=== PATIENT | female | born 1955 | race Caucasian/White ===

== ENCOUNTER 2023-08-03 08:17 | Outpatient (AMB) | payer OTHER, SELFPAY ==
--- NOTE | 2023-08-03 08:25 | A.OFFVIS_ITS ---
Intake Vital Signs 08/03/23 08:37 Height 5 ft 7 in Weight 158 lb BMI 24.7 BP 110/80 Blood Pressure Location Lt brachial Position Sitting Pulse 75 Pulse Source Pulse Oximeter Pulse Oximetry (%) 99 Oxygen Delivery Method Room Air Intake Visit Reasons: ENP- Lower Leg Pain -LVM Intake Note: NPV for lower leg pain. Also states has numbness in her right arm. Sales Floor Team Leader Required: Yes Sales Floor Team Leader Name: [id number] Allergies Gadolinium-Containing Contrast Medi Adverse Reaction (Severe, Verified 08/03/23 08:29) sored throat and sneezing arugla Allergy (Severe, Uncoded 08/03/23 08:29) rash HPI HPI Comments History of Present Illness Details 68 y/o male patient presents for new in- person visit for left leg pain. Charlotte ID #[id number] Slovak environmental technical officer utilized. Pt reports left leg pain, it started long time ago, can't remember when it started. She has intermittent electric shock pain from knee to toe, and it is more severe in the middle of night. She tried gabapentin 100 mg to 600 mg but it did not help to relieve the pain. Applying pressure can relieve the eclectic shock pain on her leg. Pt has hx of lower back back injury and left sciatica nerve pain, and right knee pain. She was treated with cortisone injection for lower back, and right knee pain. Pt has not tried physical therapy. [facility] Surgical History (Updated 08/03/23 @ 08:34 by Nurys Qiu CMA) H/O endoscopy Family History (Updated 08/03/23 @ 08:36 by Nurys Qiu CMA) Mother Diabetes Colon cancer Social History (Updated 08/03/23 @ 08:37 by Nurys Qiu CMA) Alcohol intake: never Patient Tobacco Use Status: Never used Tobacco Review of Systems Const All systems reviewed & are unremarkable except as noted in HPI and below ENT Reports Normal hearing present Neuro Reports Normal hearing present Physical Exam Vital Signs: Last Vital Signs Pulse 75 08/03/23 08:37 BP 110/80 08/03/23 08:37 Pulse Ox 99 08/03/23 08:37 Oxygen Delivery Method Room Air 08/03/23 08:37 BMI result Body Mass Index 24.7 Const General: cooperative Nutritional Appearance: average body habitus Orientation/consciousness: patient oriented x3 Limitations: language barrier Neck Neck: Yes full ROM and Yes supple Resp Effort & Inspection: normal respiratory effort and able to speak in complete sentences Neuro General: patient oriented x3, gait normal and moves all extremities Cranial nerves: Yes Bilaterally intact EOM present, Yes Nystagmus not present, Yes Normal facial strength present, Yes Midline tongue present, Yes Normal hearing present, Yes Ability to bilaterally rotate head present and Yes Ability to bilaterally elevate shoulders present Cognition (Neuro): normal cognition Gait exam (Neuro): Normal gait present Motor exam (neuro): 5/5 motor strength present throughout, Pronator motor function not present and no tremor noted Deep tendon reflexes (DTR's): Right patellar reflex intensity grade: 3+ and Left patellar reflex intensity grade: 3+ Psych Appearance: grossly normal Mental Status: mental status grossly normal Affect: normal affect Attitude: cooperative Assessment & Plan Assessment & Plan (1) Left leg pain: Code(s): M79.605 - Pain in left leg Plan Advised patient to try physical therapy. Advised patient to try magnesium 400 mg qHS with baclofen 5 mg qHS. Orders: Orders PT Evaluation and Treatment Today M79.605 - Pain in left leg Medications: New baclofen 5 mg PO BEDTIME 30 days 30 tabs 5RF magnesium oxide 400 mg PO DAILY 30 days 30 tabs 6RF Coding Level of Care Code New Pt Level 3 (19586) Diagnoses Left leg pain M79.605
[2023-08-03 08:37] VITALS: BP 110/80; PULSE 75; O2SAT 99; BMI 24.7
== END 2023-08-03 09:08 | disposition home or self-care (01) ==
LOC: HO.HSMS 08:17
PROVIDERS: Visit Provider Nurse Practitioner Family
DX: M79.605 Pain in left leg (principal)
CPT/HCPCS: 99203

== ENCOUNTER → 2023-08-03 08:17 | Outpatient (BNVA) | payer OTHER, SELFPAY | PROVIDERS: Visit Provider Nurse Practitioner Family ==

== ENCOUNTER 2023-10-07 15:38 | Outpatient (AMB) | payer OTHER, SELFPAY ==
--- NOTE | 2023-10-07 15:45 | A.OFFVIS_ITS ---
Intake Vital Signs 10/07/23 15:47 Weight 155 lb 4 oz BP 110/76 Blood Pressure Location Lt brachial Position Sitting Intake Visit Reasons: 2 mnts f/u for Lower Leg Pain - LVM Woodworking Machinist Required: Yes Woodworking Machinist Name: Vahe [id number] Allergies Gadolinium-Containing Contrast Medi Adverse Reaction (Severe, Verified 10/07/23 15:48) sored throat and sneezing arugla Allergy (Severe, Uncoded 08/03/23 08:29) rash HPI HPI Comments History of Present Illness Details 68 y/o male patient presents for follow up of left leg pain. Vahe ID #[id number] Kiswahili video network engineer utilized. Pt reports left leg pain, it started long time ago, can't remember when it started. She has intermittent electric shock pain from knee to toe, and it is more severe in the middle of night. She tried gabapentin 100 mg to 600 mg but it did not help to relieve the pain. Applying pressure can relieve the eclectic shock pain on her leg. Pt has hx of lower back back injury and left sciatica nerve pain, and right knee pain. She was treated with cortisone injection for lower back, and right knee pain. Physical therapy ordered, but patient wants to do with female provider and waiting for setting schedule with female provider. Patient tried magnesium but it caused GI upset and she stopped it. She also tried baclofen, but it did not help to relieve the leg pain, so she stopped it. [facility] Surgical History H/O endoscopy Family History Mother Diabetes Colon cancer Social History Alcohol intake: never Patient Tobacco Use Status: Never used Tobacco Review of Systems Const All systems reviewed & are unremarkable except as noted in HPI and below ENT Reports Normal hearing present Neuro Reports Normal hearing present Physical Exam Vital Signs: Last Vital Signs BP 110/76 10/07/23 15:47 Const General: cooperative Nutritional Appearance: average body habitus Orientation/consciousness: patient oriented x3 Limitations: language barrier Neck Neck: Yes full ROM and Yes supple Resp Effort & Inspection: normal respiratory effort and able to speak in complete sentences Neuro General: patient oriented x3, gait normal and moves all extremities Cranial nerves: Yes Bilaterally intact EOM present, Yes Nystagmus not present, Yes Normal facial strength present, Yes Midline tongue present, Yes Normal hearing present, Yes Ability to bilaterally rotate head present and Yes Ability to bilaterally elevate shoulders present Cognition (Neuro): normal cognition Gait exam (Neuro): Normal gait present Motor exam (neuro): 5/5 motor strength present throughout, Pronator motor function not present and no tremor noted Deep tendon reflexes (DTR's): Right patellar reflex intensity grade: 3+ and Left patellar reflex intensity grade: 3+ Psych Appearance: grossly normal Mental Status: mental status grossly normal Affect: normal affect Attitude: cooperative Assessment & Plan Assessment & Plan (1) Left leg pain: Code(s): M79.605 - Pain in left leg Plan Advised patient to try physical therapy. Advised patient to undergo EMG of bilateral lower extremities to assess neuropathy. Orders: Orders NE electromyogram (EMG) 10/07/23 M79.605 - Pain in left leg, M79.661 - Pain in right lower leg, M79.662 - Pain in left lower leg Coding Level of Care Code Est Pt Level 3 (38812) Diagnoses Left leg pain M79.605
[2023-10-07 15:47] VITALS: BP 110/76
== END 2023-10-07 16:23 | disposition home or self-care (01) ==
PROVIDERS: Visit Provider Nurse Practitioner Family
DX: M79.605 Pain in left leg (principal)
CPT/HCPCS: 99213

== ENCOUNTER → 2023-10-07 15:38 | Outpatient (BNVA) | payer OTHER, SELFPAY | PROVIDERS: Visit Provider Nurse Practitioner Family ==

== ENCOUNTER 2024-01-13 15:08 | Outpatient (AMB) | payer OTHER, SELFPAY ==
--- NOTE | 2024-01-13 15:10 | A.OFFVIS_ITS ---
Vital Signs 01/13/24 15:33 Height 5 ft 7 in Weight 154 lb 8 oz BMI 24.2 BP 112/70 Blood Pressure Location Lt brachial Position Sitting Pulse 78 Pulse Source Pulse Oximeter Pulse Oximetry (%) 98 Oxygen Delivery Method Room Air Intake Visit Reasons: 3 mo f/u - Confirmed Intake Note: Patient presents 3 months f/u. pt. was not able to take EMG test due to being sick when she had it. She needs asw/asuw tactical air controller, needs address and phone number to where to take the test. Pt. can't sleep feeling to much pain on both legs. Is painful to lift right arm. Wet Trimmer Required: Yes Wet Trimmer Name: [id number] Manal Allergies Gadolinium-Containing Contrast Medi Adverse Reaction (Severe, Verified 01/13/24 15:33) sored throat and sneezing arugla Allergy (Severe, Uncoded 08/03/23 08:29) rash HPI Comments Details: 68 y/o male patient presents for follow up of left leg pain. Manal ID #[id number] Swedish interpreter and translator utilized. Pt reports her left leg pain has not improved. She started having left leg pain, but now she has pain on her bilateral legs. She has intermittent electric shock pain from knee to toe, and it is more severe in the middle of night. And the pain is more severe when she lift her legs up. She tried gabapentin 100 mg to 600 mg but it did not help to relieve the pain. She takes cymbalta 60 mg, and it helps a little to reduce the pain but not last long. She uses cyclobenzaprine as needed due to it makes her very tired. They help to relieve the pain for short period of time. Applying pressure can relieve the eclectic shock pain on her leg. Patient tried magnesium but it caused GI upset and she stopped it. She also tried baclofen, but it did not help to relieve the leg pain, so she stopped it. Pt has hx of lower back back injury and left sciatica nerve pain, and right knee pain. She was treated with cortisone injection for lower back, and right knee pain. However, she states that the pain is not related to sciatica. Pt had physical therapy 6-7 times. Pt missed EMG, need to reschedule, but she did not know where she need to call. [facility] Surgical History H/O endoscopy Family History Mother Diabetes Colon cancer Social History Alcohol intake: never Patient Tobacco Use Status: Never used Tobacco Review of Systems Const All systems reviewed & are unremarkable except as noted in HPI and below ENT Reports Normal hearing present Neuro Reports Normal hearing present Physical Exam Vital Signs: Last Vital Signs Pulse 78 01/13/24 15:33 BP 112/70 01/13/24 15:33 Pulse Ox 98 01/13/24 15:33 Oxygen Delivery Method Room Air 01/13/24 15:33 BMI result Body Mass Index 24.2 Const General: cooperative Nutritional Appearance: average body habitus Orientation/consciousness: patient oriented x3 Limitations: language barrier Neck Neck: Yes full ROM and Yes supple Resp Effort & Inspection: normal respiratory effort and able to speak in complete sentences Neuro General: patient oriented x3, gait normal and moves all extremities Cranial nerves: Yes Bilaterally intact EOM present, Yes Nystagmus not present, Yes Normal facial strength present, Yes Midline tongue present, Yes Normal hearing present, Yes Ability to bilaterally rotate head present and Yes Ability to bilaterally elevate shoulders present Cognition (Neuro): normal cognition Gait exam (Neuro): Normal gait present Motor exam (neuro): 5/5 motor strength present throughout, Pronator motor function not present and no tremor noted Deep tendon reflexes (DTR's): Right patellar reflex intensity grade: 3+ and Left patellar reflex intensity grade: 3+ Psych Appearance: grossly normal Mental Status: mental status grossly normal Affect: normal affect Attitude: cooperative Assessment & Plan Assessment & Plan (1) Left leg pain: Code(s): M79.605 - Pain in left leg Category: Medical Plan Advised patient to undergo EMG of bilateral lower extremities to assess neuropathy. Central scheduling phone number given to patient. Continue to take gabapentin 100 qHS, duloxetine 60 mg daily, and cyclobenzaprine 5 mg as needed. Coding Level of Care Code Est Pt Level 3 (50647) Diagnoses Left leg pain M79.605
[2024-01-13 15:33] VITALS: BP 112/70; PULSE 78; O2SAT 98; BMI 24.2
== END 2024-01-13 15:59 | disposition home or self-care (01) ==
PROVIDERS: Visit Provider Nurse Practitioner Family
DX: M79.605 Pain in left leg (principal)
CPT/HCPCS: 99213

== ENCOUNTER → 2024-01-13 15:08 | Outpatient (BNVA) | payer OTHER, SELFPAY | PROVIDERS: Visit Provider Nurse Practitioner Family ==

== ENCOUNTER 2024-07-20 14:48 | Outpatient (AMB) | payer OTHER, SELFPAY ==
--- NOTE | 2024-07-20 15:01 | MHC.OFFVIS ---
Vital Signs 07/20/24 15:02 Height 5 ft 7 in Weight 154 lb 6 oz BMI 24.2 Intake Visit Reasons: 6 Month F/U Intake Note: Patient presents for 6 month follow up. Patient is here for results. Corporate Librarian Required: Yes Corporate Librarian Name: Daniela ID#[id number] Allergies Gadolinium-Containing Contrast Medi Adverse Reaction (Severe, Verified 07/20/24 15:07) sored throat and sneezing arugla Allergy (Severe, Uncoded 07/20/24 15:07) rash HPI Comments Details: 69 year old female with h/o leg pain, presents for f/u of her nerve conduction study. She is accompanied by her and has an IPAD interpreter for the deaf. She continues to have bilateral, electric shock like pain radiating up from her ankles to the back of her knees. She says it feels like pins and needles and can not sleep at night when the pain comes on. She has been applying pressure and using heating blankets along with all her medications she is now taking Gabapentin 300 mg at night along with the tramadol 50 mg. She is able to walk and bear weight on both legs during the day, however the pain is severe at night and keeps her up. BLE EMG/NCS, January 2024, was normal- results showed normal firing rates, normal distal latencies, and velocities at baseline she did have moderate difficulty tolerating the exam, per [facility]. She denies falls, fever, vomiting, headaches, vision changes, numbness or tingling. PFSH Surgical History H/O endoscopy Family History Mother Diabetes Colon cancer Social History Alcohol intake: never Patient Tobacco Use Status: Never used Tobacco Review of Systems Const Details: Cooperative. Reports as per HPI Musc Reports muscle weakness and Reports radiating pain into limb (shooting electrical shock pain to the back of the knee from the ankle.) Neuro Reports as per HPI Physical Exam Vital Signs: BMI result Body Mass Index 24.2 Const General: cooperative, no acute distress and other (holding her right shoulder and rubs her legs) Nutritional Appearance: average body habitus Orientation/consciousness: patient oriented x3 Limitations: language barrier (Corporate Librarian on IPAD - ) HEENT Head: Yes normal to inspection Neck Neck: Yes full ROM Resp Effort & Inspection: normal respiratory effort and able to speak in complete sentences Neuro General: patient oriented x3 and moves all extremities Cranial nerves: Yes CN's II-XII intact bilaterally Motor exam (neuro): 5/5 motor strength present throughout Deep tendon reflexes (DTR's): Right triceps reflex intensity grade: 2+, Left triceps reflex intensity grade: 2+, Rt Biceps (C5, C6): 2+, Left biceps reflex intensity grade: 2+, Right brachioradialis reflex intensity grade: 2+, Left brachioradialis reflex intensity grade: 2+, Right patellar reflex intensity grade: 2+, Left patellar reflex intensity grade: 2+, Right ankle reflex intensity grade: 2+ and Left ankle reflex intensity grade: 2+ Coordination: [id number] test normal Psych Appearance: grossly normal Affect: normal affect Attitude: cooperative Insight: Good insight present (Psych) Judgement: Good judgement present (Psych) Assessment & Plan Assessment & Plan (1) Pain in both lower legs: Comment: ? RLS Code(s): M79.661 - Pain in right lower leg; M79.662 - Pain in left lower leg Category: Medical (2) Low back pain: Code(s): M54.50 - Low back pain, unspecified Category: Medical (3) Paresthesia of bilateral legs: Code(s): R20.2 - Paresthesia of skin Category: Medical Plan Will get X-ray of the lower back. Complete Labs - for common etiologies of neuralgic pain and restless leg s/s -CBC, CMP, TSH, -B12 Levels with MMA, and Homocystein Levels, -Check Ferritin levels -Vitamin D levels -Vitamin B6 levels Use Warm towels or heated blankets purchase a Weighted blanket as it will help alleviate pain at night. Gentle Stretching exercises daily in the evenings prior to bed time. Applying topical creams like tiger balm or Rest less Leg Cream, can also help alleviate pain. Continue Gabapentin 300mg qhs. Tramadol 50mg prn. Ibuprofen 600mg as needed. Capsacin cream. [place] after the R. shoulder surgery [place] 2024 [place] [facility] and Xray. Pt seen by Nadia HE in coordination w/ myself Estephania Avendaño, [facility]-, I agree with the above documentation and plan. Orders: Orders IRON PROFILE Today D64.9 - Anemia, unspecified, R20.2 - Paresthesia of skin Methylmalonic Acid Today D64.9 - Anemia, unspecified, R20.2 - Paresthesia of skin Vitamin B6 Today D64.9 - Anemia, unspecified, R20.2 - Paresthesia of skin XR lumbar spine 2-3V Today M54.50 - Low back pain, unspecified, R20.2 - Paresthesia of skin Complete Blood Count Auto Diff Today D64.9 - Anemia, unspecified, R20.2 - Paresthesia of skin Comprehensive Met. Panel Today D64.9 - Anemia, unspecified, R20.2 - Paresthesia of skin TSH reflex Free T4 Today D64.9 - Anemia, unspecified, R20.2 - Paresthesia of skin Ferritin Today D64.9 - Anemia, unspecified, R20.2 - Paresthesia of skin Vitamin B12 and Folate Today D64.9 - Anemia, unspecified, R20.2 - Paresthesia of skin Folate Today D64.9 - Anemia, unspecified, R20.2 - Paresthesia of skin Homocysteine Today D64.9 - Anemia, unspecified, R20.2 - Paresthesia of skin Vitamin D 25-OH (D2 and D3) Today D64.9 - Anemia, unspecified, R20.2 - Paresthesia of skin Coding Level of Care Code Est Pt Level 4 (09934) Diagnoses Pain in both lower legs M79.661; M79.662 Low back pain M54.50 Paresthesia of bilateral legs R20.2
[2024-07-20 15:02] VITALS: BMI 24.2
== END 2024-07-20 16:13 | disposition home or self-care (01) ==
LOC: HO.HSMS 14:49
PROVIDERS: Visit Provider Nurse Practitioner Family
DX: M79.661 Pain in right lower leg (principal); M79.662 Pain in left lower leg; M54.50 Low back pain, unspecified; R20.2 Paresthesia of skin
CPT/HCPCS: 99214

== ENCOUNTER → 2024-07-20 14:48 | Outpatient (BNVA) | payer OTHER, SELFPAY | PROVIDERS: Visit Provider Nurse Practitioner Family ==

== ENCOUNTER 2025-03-06 14:13 | Outpatient (AMB) | payer OTHER, SELFPAY ==
--- NOTE | 2025-03-06 14:46 | A.OFFVIS_ITS ---
Vital Signs 03/06/25 14:47 Height 5 ft 7 in Weight 156 lb BMI 24.4 Pulse 92 Pulse Source Pulse Oximeter Pulse Oximetry (%) 98 Oxygen Delivery Method Room Air Intake Visit Reasons: f/u appt Intake Note: Patient presents follow up paresthesia. Labs/MRI in chart. Automotive Quality Manager Required: Yes Automotive Quality Manager Services: Automotive Quality Manager Present Automotive Quality Manager Name: Amy [id number] Information Interpreted: non-clinical & clinical Accompanied by: Self / Same As Patient Allergies Gadolinium-Containing Contrast Medi Adverse Reaction (Severe, Verified 03/06/25 14:55) sored throat and sneezing arugla Allergy (Severe, Uncoded 07/20/24 15:07) rash HPI Comments Details: 69 year old Faroese speaking female presents for f/u of leg pain, numbness and tingling. 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 MRI in 2024? comparison? January 2024 EMG /NCS showed normal firing rates, normal distal latencies, and velocities at baseline she did have moderate difficulty tolerating the exam. HST is pending She is having heart palpitations for anxiety, wakes up from sleep and heart races, says her bp is low, however after cortisone injections it does increase. She is being managed by her Pcp. Rupture r. arm tendon /deltoid repair reattachment of tendons in [facility], Dr. Blank Mckeon. She takes Gabapentin 200 mg PO at bedtime, and she recently had corticosteroid injections bilaterally and the pain has improved. She continues to have trouble with sleep, will stay up until 1:30 am, and is taking melatonin 5-10mg po daily. Mood and memory are stable. RLS symptoms +numbness, tingling, burning pain, radiating up the feet and keep her up at night. She says it feels like pins and needles and can not sleep at night when the pain is exacerbated. She has been applying pressure and using heating blankets along with all her medications. She denies falls or injuries. Will trial her on Lyrica 50mg PO at bedtime and titrate as needed, hold gabapentin 100-200mg as it is not effective. She stays up until 1:30 am and rumminates. 3 months f/u MRI and labs requested. [facility] Surgical History (Updated 03/06/25 @ 14:56 by GABRIELLA Emmanuel) History of shoulder surgery H/O endoscopy Family History Mother Diabetes Colon cancer Social History Alcohol intake: never Patient Tobacco Use Status: Never used Tobacco Physical Exam Vital Signs: Last Vital Signs Pulse 92 03/06/25 14:47 Pulse Ox 98 03/06/25 14:47 Oxygen Delivery Method Room Air 03/06/25 14:47 BMI result Body Mass Index 24.4 Const General: cooperative, no acute distress and other (holding her right shoulder and rubs her legs) Nutritional Appearance: average body habitus Orientation/consciousness: patient oriented x3 Limitations: language barrier (Automotive Quality Manager on IPAD - ) HEENT Head: Yes normal to inspection Neck Neck: Yes full ROM Resp Effort & Inspection: normal respiratory effort and able to speak in complete sentences Neuro Other: pain is elicited on motor exam, refuses upper extremity reflexes today. General: patient oriented x3 and moves all extremities Cranial nerves: Yes CN's II-XII intact bilaterally, Yes Ability to bilaterally rotate head present and Yes Ability to bilaterally elevate shoulders present Deep tendon reflexes (DTR's): Right patellar reflex intensity grade: 2+, Left patellar reflex intensity grade: 2+, Right ankle reflex intensity grade: 2+ and Left ankle reflex intensity grade: 2+ Coordination: [id number] test normal and rapid alternating movements of the distal lower extremity normal (slow) Psych Appearance: grossly normal Affect: normal affect Attitude: cooperative Assessment & Plan Assessment & Plan (1) Low vitamin D level: Code(s): R79.89 - Other specified abnormal findings of blood chemistry Category: Medical (2) Pain in both lower legs: Comment: ? RLS Code(s): M79.661 - Pain in right lower leg; M79.662 - Pain in left lower leg Category: Medical (3) Paresthesia of bilateral legs: Code(s): R20.2 - Paresthesia of skin Category: Medical (4) History of burning pain in lower extremity: Code(s): Z87.39 - Personal history of other diseases of the musculoskeletal system and connective tissue Category: Medical (5) Sleep difficulties: Code(s): G47.9 - Sleep disorder, unspecified Category: Medical Plan HST to r/o sleep disturbances Labs reviewed with patient today Vit d is low, otherwise normal labs, ferritin and b12 is normal. RLS: start Lyrica 50mg PO at bedtime, hold gabapentin 100-200mg po daily at bedtime,and apply Magnilife cream topically to alleviate the burning and pain sensation along with Glasgow balm and bengay may also help. PT? Will consider Physical therapy at next visit? if not improved with stretching and medications. Continue gentle stretching with daily exercises as they can be helpful at night. Will get X-ray of the lower back, f/u with Ni? MRI 2022 EMG / NCS reviewed with patient today. Orders: Orders RT home sleep study Today G47.19 - Other hypersomnia Medications: New pregabalin (Lyrica) take one tablet daily for burning leg pain at bedtime 50 mg PO BEDTIME 1 month 30 caps 0RF burning pain MDD 50mg M79.661 - Pain in right lower leg, M79.662 - Pain in left lower leg Changed From vitamin B complex (B Complex-Vitamin B12 tablet) 1 tab PO DAILY M79.661 - Pain in right lower leg, M79.662 - Pain in left lower leg To vitamin B complex take one tablet daily at bedtime 1 tab PO DAILY 90 days 90 tabs 3RF neuropathy M79.661 - Pain in right lower leg, M79.662 - Pain in left lower leg From cholecalciferol (vitamin D3) 25 mcg PO DAILY R79.89 - Other specified abnormal findings of blood chemistry To cholecalciferol (vitamin D3) take one capsule daily at bedtime 25 mcg PO DAILY 90 days 90 caps 2RF low vitamin d MDD 25mcg R79.89 - Other specified abnormal findings of blood ch emistry From melatonin 16 mg PO BEDTIME G47.9 - Sleep disorder, unspecified To melatonin take one tablet at night daily for sleep difficulties. 12 mg PO BEDTIME 90 days 90 tabs 0RF difficulties sleeping MDD 12mg G47.9 - Sleep disorder, unspecified Refilled magnesium oxide 400 mg PO DAILY 30 days 30 tabs 6RF Patient Instructions: Sleep Hygiene provided: set a scheduled bedtime and wake time to help regulate the circadian rhythm and balance the release of pituitary hormones. Sleep in a dark room, temperatures below 68 degrees, and no devices n bed. Limit caffeinated products 6 hours prior to bed, and limit fluids 2-4 hours prior to bed. Gentle night yoga, diffusing essential oils, and playing soft music can be relaxing. Coding Level of Care Code Est Pt Level 4 (03272) Diagnoses Low vitamin D level R79.89 Pain in both lower legs M79.661; M79.662 Paresthesia of bilateral legs R20.2 History of burning pain in lower extremity Z87.39 Sleep difficulties G47.9 Time Spent (min) 35 Comment baseline evaluation
[2025-03-06 14:47] VITALS: PULSE 92; O2SAT 98; BMI 24.4
--- OUTSIDE RECORDS SUMMARY | 2025-03-06 15:57 | XMS_ITS | Clinical Summary ---
Author Organization [employer] Address [address] [place] [address] 7 [place] [address] Care Team Providers Care Pc Support Specialist Name Role Phone Unavailable Primary Care Provider Unavailabl e Allergies No known active allergies Social History Tobacco Use Types Packs/Day Years Used Date Smoking Tobacco: Never Assessed Comments Unknown Sex and Gender Information Value Date Recorded Sex Assigned at Unknown 08/26/2023 9:18 AM EST Legal Sex Unknown 08/20/2023 11:26 AM EST Gender Identity Choose not to disclose 9:18 AM EST Sexual Orientation Choose not to disclose 2022 9:18 AM EST Plan of Treatment Health Maintenance Due Date Last Done Comments CT Colonography 1957 Colonoscopy 1957 Colorectal Cancer Screening 1957 Dental Oral Exam 1957 Dental Prophylaxis 1957 Depression Screening 1957 FIT DNA/Cologuard 1957 FIT 1957 FOBT 1957 Lipid Panel 1957 SDOH Screening 1957 Sigmoidoscopy 1957 Alcohol/Substance Use Screening 1969 Tobacco Screening 1969 Hepatitis C Screening 1975 DTaP/Tdap/Td Vaccines (1 - Tdap) 1976 Mammogram 1997 Pneumococcal Vaccine: 50+ Ye ars (1 of 1 - PCV) 2007 Zoster Vaccines (1 of 2) 2007 COVID-19 Vaccine ( - 2023-2 5 season) 2024 Dental X-Ray: Bitewings 12/23/2024 12/23/2023 Influenza Vaccine (Season Ended) 2025 Dental X-Ray: Full Mouth 12/23/2026 12/23/2023 RSV Patients and Pa tients Aged 60 years or older (1 - 1-dose 75+ series) 2032 HIB Vaccines Aged Out No longer eligi ble based on patient's age to complete this topic HPV Vaccines Aged Out No longer eligi ble based on patient's age to complete this topic Hepatitis A Vaccines Aged Out No long er eligible based on patient's age to complete this topic Hepatitis B Vaccines Aged Out No long er eligible based on patient's age to complete this topic IPV Vaccines Aged Out No longer eligi ble based on patient's age to complete this topic Meningococcal B Vaccine Aged Out No l onger eligible based on patient's age to complete this topic Meningococcal Vaccine Aged Out No juice de eligible based on patient's age to complete this topic RSV under 20 months Aged Out No longe r eligible based on patient's age to complete this topic Rotavirus Vaccines Aged Out No longer eligible based on patient's age to complete this topic Procedures Procedure Name Priority Date/Time Associated Diagnosis Comments PANORAMIC RADIOGRAPHIC IMAGE Routine 12/23/2023 1:00 PM EDT BITEWING - SINGLE RADIOGRAPHIC IMAGE Routine 12/23/2023 1:00 PM EDT from Last 3 Months or Most Recently Relevant to Health Maintenance Insurance DENTAL - [facility] [id number]
== END 2025-03-06 15:58 | disposition home or self-care (01) ==
LOC: HO.HSMS 14:13
PROVIDERS: Visit Provider Physician Assistant Medical
DX: R79.89 Other specified abnormal findings of blood chemistry (principal); M79.661 Pain in right lower leg; M79.662 Pain in left lower leg; R20.2 Paresthesia of skin; Z87.39 Personal history of other diseases of the musculoskeletal system and connective tissue; G47.9 Sleep disorder, unspecified
CPT/HCPCS: 99214

== ENCOUNTER 2025-06-05 14:20 | Outpatient (AMB) | payer OTHER, SELFPAY ==
[2025-06-05 14:26] VITALS: BP 110/68; PULSE 86; O2SAT 98; BMI 24.5
--- NOTE | 2025-06-05 14:26 | MHC.OFFVIS ---
Vital Signs 06/05/25 14:26 Height 5 ft 7 in Weight 156 lb 4.924 oz BMI 24.5 BP 110/68 Blood Pressure Location Rt brachial Position Sitting Pulse 86 Pulse Source Pulse Oximeter Pulse Oximetry (%) 98 Oxygen Delivery Method Room Air Intake Visit Reasons: 3mon follow-up Intake Note: Patient presents follow up Paresthesia/Sleep medication. HST booked 06/12. Patient went to [place] ED for weakness in legs. Patient states very painful. Amusement Park Entertainer Required: Yes Amusement Park Entertainer Language: Serbian Amusement Park Entertainer Services: Amusement Park Entertainer Present Amusement Park Entertainer Name: LASHAWN [id number] Information Interpreted: non-clinical & clinical Accompanied by: Self / Same As Patient Allergies Gadolinium-Containing Contrast Medi Adverse Reaction (Severe, Verified 06/05/25 14:32) sored throat and sneezing arugla Allergy (Severe, Uncoded 07/20/24 15:07) rash HPI Comments Details: 69 year old Serbian speaking female presents for f/u of leg pain, numbness and tingling. 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 knee pain and stiffness, as the knee was stuck per pt. Imaging and labs were normal, she did not have a DVT, or fracture. She has arthritic pain due to bone on bone grinding due to cartilige wear and tear. Orthopedic surgical referral. January 2024 EMG /NCS showed, normal distal latencies, and velocities at baseline she did have moderate difficulty tolerating the exam. HST is pending. She takes melatonin 5mg to 12 mg po daily to help her fall asleep and still has multiple arousals during the night and mirtazapine 15mg po prn for sleep disturbances. She has bilateral knee pain and sees her pain management for cortisone injections it does increase. Cyclobenzaprine 5mg po daily for bilateral shoulder pain. Duloxetine 60mg po daily mood and anxiety. Memory is stable. Mirtazapine 15mg po daily at bedtime for fragmented sleep. RLS symptoms +numbness, tingling, burning pain, radiating up the feet and keep her up at night. She says it feels like pins and needles and can not sleep at night when the pain is exacerbated.She has been applying pressure and using heating blankets along with all her medications.She denies falls or injuries.F/u with surgical consultation [facility] sur[facility]- referral. PFSH Surgical History History of shoulder surgery H/O endoscopy Family History Mother Diabetes Colon cancer Social History Alcohol intake: never Patient Tobacco Use Status: Never used Tobacco Physical Exam Vital Signs: Last Vital Signs Pulse 86 06/05/25 14:26 BP 110/68 06/05/25 14:26 Pulse Ox 98 06/05/25 14:26 Oxygen Delivery Method Room Air 06/05/25 14:26 BMI result Body Mass Index 24.5 Const General: cooperative, no acute distress and other (holding her right shoulder and rubs her legs) Nutritional Appearance: average body habitus Orientation/consciousness: patient oriented x3 Limitations: language barrier (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 General: patient oriented x3 and moves all extremities Cranial nerves: Yes CN's II-XII intact bilaterally, Yes Ability to bilaterally rotate head present and Yes Ability to bilaterally elevate shoulders present Gait exam (Neuro): Staggering gait present Motor exam (neuro): Abnormal motor strength present and Abnormal muscle tone present Deep tendon reflexes (DTR's): Right patellar reflex intensity grade: 2+, Left patellar reflex intensity grade: 2+, Right ankle reflex intensity grade: 2+ and Left ankle reflex intensity grade: 2+ Coordination: [id number] test normal and rapid alternating movements of the distal lower extremity normal (slow) Psych Appearance: grossly normal Attitude: cooperative Assessment & Plan Assessment & Plan (1) Paresthesia of bilateral legs: Code(s): R20.2 - Paresthesia of skin Category: Medical (2) History of burning pain in lower extremity: Code(s): Z87.39 - Personal history of other diseases of the musculoskeletal system and connective tissue Category: Medical (3) Bilateral knee pain: Code(s): M25.561 - Pain in right knee; M25.562 - Pain in left knee Category: Medical Qualifiers: Chronicity: chronic Qualified Code(s): M25.561 - Pain in right knee; M25.562 - Pain in left knee; G89.29 - Other chronic pain (4) Pain in both lower legs: Comment: ? RLS Code(s): M79.661 - Pain in right lower leg; M79.662 - Pain in left lower leg Category: Medical (5) Sleep difficulties: Code(s): G47.9 - Sleep disorder, unspecified Category: Medical (6) Excessive daytime sleepiness: Code(s): G47.19 - Other hypersomnia Category: Medical Plan Sleep difficulties HST to r/o POWER is pending. Bilateral knee pain referral and Pain management for knee RLS Will trial her on Lyrica 50mg PO BID. Hold Gabapentin 100-200mg as it is not effective. Continue Duloxetine for mood irritability and anxiety. Labs to r/o deficiencies. 3 months f/u. Orders: Orders Vitamin B12 and Folate 06/05/25 R20.2 - Paresthesia of skin, Z87.39 - Personal history of other diseases of the musculoskeletal system and connective tissue Vitamin B1 06/05/25 R20.2 - Paresthesia of skin, Z87.39 - Personal history of other diseases of the musculoskeletal system and connective tissue TSH reflex Free T4 06/05/25 R20.2 - Paresthesia of skin, Z87.39 - Personal history of other diseases of the musculoskeletal system and connective tissue Methylmalonic Acid 06/05/25 G47.9 - Sleep disorder, unspecified, R20.2 - Paresthesia of skin, R53.83 - Other fatigue, Z87.39 - Personal history of other diseases of the musculoskeletal system and connective tissue Homocysteine 06/05/25 G47.9 - Sleep disorder, unspecified, R20.2 - Paresthesia of skin, R53.83 - Other fatigue, Z87.39 - Personal history of other diseases of the musculoskeletal system and connective tissue Comprehensive Met. Panel 06/05/25 R20.2 - Paresthesia of skin, Z87.39 - Personal history of other diseases of the musculoskeletal system and connective tissue PT Evaluation and Treatment Today M25.561 - Pain in right knee, M25.562 - Pain in left knee Vitamin D 25-OH Total 06/05/25 R20.2 - Paresthesia of skin, Z87.39 - Personal history of other diseases of the musculoskeletal system and connective tissue Vitamin B6 06/05/25 R20.2 - Paresthesia of skin, Z87.39 - Personal history of other diseases of the musculoskeletal system and connective tissue Hemoglobin A1c 06/05/25 R20.2 - Paresthesia of skin, Z87.39 - Personal history of other diseases of the musculoskeletal system and connective tissue Ferritin 06/05/25 R20.2 - Paresthesia of skin, Z87.39 - Personal history of other diseases of the musculoskeletal system and connective tissue Complete Blood Count no Diff 06/05/25 R20.2 - Paresthesia of skin, Z87.39 - Personal history of other diseases of the musculoskeletal system and connective tissue Referrals Pain Management Referral M25.561 - Pain in right knee, M25.562 - Pain in left knee, M79.661 - Pain in right lower leg, M79.662 - Pain in left lower leg Medications: Changed From pregabalin (Lyrica) take one tablet daily for burning leg pain at bedtime 50 mg PO BEDTIME 1 month 30 caps 0RF burning pain MDD 50mg M79.661 - Pain in right lower leg, M79.662 - Pain in left lower leg To pregabalin take one 50mg po capsule daily in the AM and 50mg PO daily in the evening. 50 mg PO BID 60 caps 0RF burning pain 1 month MDD 100mg M79.661 - Pain in right lower leg, M79.662 - Pain in left lower leg Coding Level of Care Code Est Pt Level 4 (53735) Diagnoses Paresthesia of bilateral legs R20.2 History of burning pain in lower extremity Z87.39 Chronic pain of both knees M25.561; M25.562; G89.29 Chronicity: chronic Pain in both lower legs M79.661; M79.662 Sleep difficulties G47.9 Excessive daytime sleepiness G47.19
--- OUTSIDE RECORDS SUMMARY | 2025-06-05 19:46 | XMS_ITS | Clinical Summary ---
Author Organization [facility] Address [address] [place] [address] Care Team Providers Care Telesales Manager Name Role Phone Unavailable Primary Care Provider Unavailabl e Source Comments PLEASE NOTE, if this patient is a minor, it may be UNLAWFUL to discuss sensitive information that is contained in these records (such as FAMILY PLANNING, MENTAL HEALTH or SUBSTANCE ABUSE) with the minor patient's parent or other person without the patient's specific authorization.[facility] Allergies No known active allergies Medications pregabalin (LYRICA) 75 mg capsule Take 75 mg by mouth 2 (two) times daily. Active Trifluoperazine 1 mg tabIndications:Fla tulence, eructation, and gas pain Take by mouth. 4 Active polyethylene glycol (GLYCOLAX, MIRALAX) 17 gram packetIndications: Constipation - functional Take 17 g by mouth once daily. Dissolve contents of packet in a glass (8 oz) of water. 60 Each 3 4 Active ranitidine (ZANTAC) 150 mg tabletIndications: Flatulence, eructation, and gas pain Take 1 Tab by mouth 2 (two) times daily. 60 Tab 3 4 Active aspirin-acetaminop hen-caffeine (EXCEDRIN MIGRAINE) 250-250-65 mg per tabletIndications: Headache Take 1 Tab by mouth every 6 (six) hours as needed for pain. 30 Tab 2 4 Active ondansetron (ZOFRAN) 4 mg tabletIndications: Abdominal pain, other specified site Take 1 Tab by mouth every 4 to 6 (four to six) hours as needed for nausea. 30 Tab 2 4 Active LORazepam (ATIVAN) 0.5 mg tabletIndications: Anxiety Take 1 Tab by mouth 2 (two) times daily as needed for anxiety. 60 Tab 0 4 Active acetaminophen (TYLENOL) 325 mg tabletIndications: Head ache Take 2 Tabs by mouth every 6 (six) hours as needed for pain or fever. 30 Tab 1 4 Active omeprazole (PRILOSEC) [address] capsule TAKE ONE CAPSULE BY MOUTH EVERY MORNING BEFORE BREAKFAST. DO NOT CRUSH OR CHEW 90 Cap 2 4 Active sertraline (ZOLOFT) 50 mg tablet TAKE 1 TABLET BY MOUTH ONCE DAILY 90 Tab 1 4 Active ibuprofen (ADVIL,MOTRIN) 600 mg tabletIndications: Back pain Take 1 Tab by mouth 4 (four) times daily as needed for pain. 30 Tab 2 4 Active gabapentin (NEURONTIN) 100 mg capsuleIndications :Neuropathy Take 3 Caps by mouth 3 (three) times daily. 90 Cap 2 4 Active carbamide (DEBROX) 6.5 % otic solutionIndication s:Cerumen impaction Place 5 Drops into both ears 2 (two) times daily. Use for up to 4 days. 15 mL 2 4 Active meclizine (BONINE) 25 mg tabletIndications: Vertigo Take 1 Tab by mouth 2 (two) times daily as needed for nausea. 60 Tab 2 4 Active acetaminophen (TYLENOL) 500 mg tablet Take 1 Tablet by mouth every 6 (six) hours as needed for pain 20 Tablet 1 Active pantoprazole (PROTONIX) 20 mg EC tablet Take 20 mg by mouth every morning before breakfast Active calcium polycarbophiL (FIBERCON) 625 mg tablet Take 625 mg by mouth once daily Active calcium carbonate/vitamin D3 (CALCIUM 500 + D ORAL) Take by mouth Active Lactobac 40/Bifido 3/S.thermop (PROBIOTIC ORAL) Take by mouth Active mirtazapine (REMERON) 15 mg tablet Take 15 mg by mouth nightly at bedtime Active rosuvastatin (CRESTOR) 5 mg tablet Take 5 mg by mouth once daily Active simethicone (GAS-X ULTRA) 180 mg capsule Take 180 mg by mouth every 6 (six) hours as needed Active cyanocobalamin, vitamin B-12, 250 mcg tablet Take 250 mcg by mouth once daily Active DULoxetine (CYMBALTA) [address] capsule Take 60 mg by mouth once daily Active melatonin 5 mg chew Take by mouth Active fluoride, sodium, (DENTAGEL) 1.1 % gelIndications:Car ies of enamel (incipient) Place in mouth once daily for 30 days 56 g 3 Active Active Problems Problem Noted Date Diagnosed Date Constipation - functional 06/16/2014 Neuropathy 04/26/2014 Flatulence, eructation, and gas pain 04/26/2014 Immunizations Immunization Administration Dates Next Due Hep B, Adult/Adol (ZNAYAQY-B-VRJNG/RECOMBIVAX-AD ULT) 07/04/2014,05/30/2014 INFLUENZA, SEASONAL, INJECTABLE, PRESERVATIVE FR EE 08/08/2014 MMR (MMR II/Priorix) 05/30/2014,04/26/2014 TDAP 04/26/2014 Td (adult), 5 Lf tetanus tox oid (Tenivac), preservative free 05/30/2014 Social History Tobacco Use Types Packs/Day Years Used Date Smoking Tobacco: Never Smokeless Tobacco: Never Alcohol Use Standard Drinks/Week Comments No 0 (1 standard drink = 0.6 oz pur e alcohol) Social Connections Answer Date Recorded Connectedness 0 06/09/2024 Financial Resource Strain Answer Date R ecorded Financial Resource Strain 0 2021 Stress Answer Date Recorded Stress 0 01/31/2022 Physical Activity Answer Date Recorded Physical Activity 0 01/31/2022 Food Insecurity Answer Date Recorded Food 0 06/16/2024 Transportation Needs Answer Date Record ed Transportation 0 01/31/2022 Housing Stability Answer Date Recorded Housing 0 01/31/2022 Safety and Environment Answer Date Rayray rded Safety 0 01/31/2022 Utilities Answer Date Recorded Utilities 0 01/31/2022 Employment Answer Date Recorded Stress 0 06/09/2024 Comments No Sex and Gender Information Value Date Recorded Sex Assigned at Not on file Legal Sex Female 8:46 AM PDT Gender Identity Not on file Sexual Orientation Not on file Last Filed Vital Signs Vital Sign Reading Time Taken Comments Blood Pressure 100/72 12/07/2023 1:13 PM EDT Pulse 79 12/07/2023 1:13 PM EDT Temperature 36.6 C (97.9 F) 07/27/2014 11:17 AM EST Respiratory Rate 16 08/08/2014 11:21 AM EST Oxygen Saturation - - Inhaled Oxygen Concentration - - Weight 69.6 kg (153 lb 6.4 oz) 08/08/2014 11:21 AM EST Height 160.7 cm (5' 3.25 ) 08/08/2014 11:[address] Body Mass Index 26.96 08/08/2014 11:21 AM EST Plan of Treatment Health Maintenance Due Date Last Done Comments Hepatitis C Screening 1957 Lipid Screening [address] Colonography 2002 Colonoscopy 2002 Fecal DNA 2002 Flexible Sigmoidoscopy 2002 Imm-Pneumococcal 50+ (1 of 1 - PCV) 2007 Imm-Zoster, Recombinant (1 of 2) 2007 Imm-Hepatitis B (3 of 3 - 19 + 3-dose series) 11/27/2014 07/04/2014, 05/30/2014 Diabetes Screening 06/30/2015 06/30/2014 Annual Wellness (Adult): Ind icated (All Coverage) 08/08/2015 08/08/2014 Colorectal Cancer Screening 08/14/2015 FIT/gFOBT 08/14/2015 08/14/2014, 06/30/2014 Breast Cancer Screening (Mammogram) 09/18/2016 09/18/2014 (Managed by Outside Provider) Bone Density Screening 2022 Falls Prevention 2022 Imm-DTaP/Tdap/Td (3 - Td or Tdap) 05/30/2024 014, 04/26/2014 Dental BW 09/20/2024 09/18/2023, 02/21, 07/28/2022 Dental Examination 09/20/2024 09/18/2023, 0 03/20/2023, 07/28/2022 Dental Perio Charting 09/20/2024 09/18/2023, 022 Dental Prophy 09/20/2024 09/18/2023, 02/21, 07/28/2022 Alcohol and Drug Screen 09/21/2024 Depression Annual Screen 09/21/2024 Hypertension Screening (#1) 12/06/2024 [id number] ( season) 2025 Imm-Influenza (#1) 2025 08/08/2014 Dental FMX/Pano 07/30/2027 07/28/2022 Procedures Procedure Name Priority Date/Time Associated Diagnosis Comments COMP PERIODONTAL EVALUATION - NEW/EST PATIENT Routine 09/18/2023 10:20 AM EST Caries of enamel (incipient) Defective dental sabianism Caries BITEWINGS - FOUR RADIOGRAPHIC IMAGES Routine 09/18/2023 10:20 AM EST Caries of enamel (incipient) Defective dental sabianism Caries PROPHYLAXIS - ADULT Routine 09/18/2023 1 0:20 AM EST Caries of enamel (incipient) Defective dental sabianism Caries PERIODIC ORAL EVALUATION ESTABLISHED PATIENT Routine 09/18/2023 10:20 AM EST Caries of enamel (incipient) Defective dental sabianism Caries INTRAORAL - COMP SERIES OF RADIOGRAPHIC IMAGES Routine 07/28/2022 1:40 PM EST Visit for dental examination COMPREHENSIVE METABOLIC PANEL Routine 06/30/2014 4:30 PM EDT Abdominal pain, other specified site STOOL OCCULT BLOOD, IN-HOUSE (17429) Routine 06/30/2014 12:26 PM EDT Abdominal pain, other specified site from Last 3 Months or Most Recently Relevant to Health Maintenance Results * COMPRE METAB PANEL (06/30/2014 4:30 PM EDT) GLUCOSE 82 70 - 100 mg/dL [facility] Comment:Reference range appl icable to fasting specimens only BUN 13 5 - 25 mg/dL [facility] CREAT 0.65 0.5 - 1.1 mg/dL [facility] GLOMERULAR FILTRATION RATE > 60 [facility] Comment: If patient is -Romanian, multiply result by 1.21 Chronic Kidney Disease: < 60 ml/min/1.73 square meters Kidney Failure: < 15 ml/min/1.73 square meters SODIUM 138 133 - 145 mEq/L [facility] POTASSIUM 4.1 3.5 - 5.5 mEq/L [facility] CHLORIDE 103 96 - 110 mEq/L [facility] CO2 28 21 - 32 mEq/L [facility] ANION GAP 7 3 - 11 [facility] CALCIUM 9.1 8.5 - 10.5 mg/dL [facility] TOTAL PROTEIN 7.1 6.0 - 8.0 G/dL [facility] ALBUMIN 4.3 3.2 - 5.0 G/dL [facility] BILI, TOTAL 0.6 0.0 - 1.4 mg/dL [facility] SGOT 24 10 - 42 U/L [facility] SGPT 20 10 - 60 U/L [facility] ALK PHOS 87 42 - 121 U/L [facility] Blood specimen (specimen) Blood / Unknown 06/30/2014 4:30 PM EDT 06/30/2014 5:01 PM EDT Narrative [facility] - 06/30/2014 9:54 PM EDT [facility] [employer] [address] [place] [address] PT ID [id number] ORD# [id number] Elmo Bartholomew MD LAB - [place] [address], * Stool Occult Blood, POCT (06/30/2014 12:26 PM EDT) OCCULT BLOOD 1 NEG NEGATIVE - POSITIVE [facility] POCT Comment:DONE PER JUAN RAMON OCCULT 2 NEG NEGATIVE - POSITIVE [facility] POCT Comment:DONE PER JUAN RAMON OCCULT BLOOD 3 NEG NEGATIVE - POSITIVE [facility] POCT Comment:DONE PER JUAN RAMON INTERNAL QC [facility] POCT Stool specimen (specimen) Stool specimen / Unknown 06/30/2014 12:26 PM EDT Elmo Bartholomew MD LAB BODY FLUIDS AND STOOLS A MBULATORY Final Result [facility] POCT from Last 3 Months or Most Recently Relevant to Health Maintenance Insurance [employer] - DENTAL
--- OUTSIDE RECORDS SUMMARY | 2025-06-05 19:46 | XMS_ITS | Encounter Summary ---
Author Organization [employer] Address [address] [facility] [address] [place] [address] Care Team Providers Care Stock Dealer Name Role Phone Unavailable Primary Care Provider Unavailabl e Encounter Details Date Type Department Care Team (Late st Contact Info) Description 08/20/2023 Abstract [facility] [address] [place] [address] Norberto Jain DDS [address] [place] [address] Social History Tobacco Use Types Packs/Day Years Used Date Smoking Tobacco: Never Assessed Comments Unknown Sex and Gender Information Value Date Recorded Sex Assigned at Unknown 08/26/2023 9:18 AM EST Legal Sex Unknown 08/20/2023 11:26 AM EST Gender Identity Choose not to disclose 9:18 AM EST Sexual Orientation Choose not to disclose 2022 9:18 AM EST documented as of this encounter Plan of Treatment Not on file documented as of this encounter Visit Diagnoses Not on filedocumented in this encounter
--- OUTSIDE RECORDS SUMMARY | 2025-06-05 19:46 | XMS_ITS | Clinical Summary ---
Author Organization [employer] Address [address] [place] [address] [address] [place] [address] Care Team Providers Care Operator Helper Name Role Phone Unavailable Primary Care Provider [...] 2007 Zoster Vaccines (1 of 2) 2007 Dental X-Ray: Bitewings 12/23/2024 12/23/2023 COVID-19 Vaccine (1 - 2023-2 5 season) 2025 Influenza Vaccine (#1) 2025 Dental X-Ray: Full Mouth 12/23/2026 12/23/2023 [...] topic Meningococcal Vaccine Aged Out No juice ed eligible based on patient's age to complete [...] - [facility] [id number]
== END 2025-06-05 15:17 | disposition home or self-care (01) ==
LOC: HO.HSMS 14:21
PROVIDERS: Visit Provider Physician Assistant Medical
DX: R20.2 Paresthesia of skin (principal); Z87.39 Personal history of other diseases of the musculoskeletal system and connective tissue; M25.561 Pain in right knee; M25.562 Pain in left knee; G89.29 Other chronic pain; M79.661 Pain in right lower leg; M79.662 Pain in left lower leg; G47.9 Sleep disorder, unspecified; G47.19 Other hypersomnia
CPT/HCPCS: 99214

== ENCOUNTER → 2025-06-12 15:09 | Outpatient (REF) | payer OTHER, SELFPAY | LOC: HO.SL 15:09 | PROVIDERS: Visit Provider Physician Assistant Medical | DX: G47.19 Other hypersomnia (principal); G47.33 Obstructive sleep apnea (adult) (pediatric); Z53.8 Procedure and treatment not carried out for other reasons | CPT/HCPCS: 95806 ==

== ENCOUNTER → 2025-06-12 15:36 | Outpatient (BNV) | payer OTHER, SELFPAY | PROVIDERS: Visit Provider Psychiatry & Neurology Neurology | DX: G47.33 Obstructive sleep apnea (adult) (pediatric) (principal) | CPT/HCPCS: 95806 ==

== ENCOUNTER 2025-07-12 14:00 | Outpatient (AMB) | payer OTHER, SELFPAY ==
[2025-07-12 14:03] VITALS: BP 105/55; PULSE 86; RESP 16; O2SAT 96; BMI 24.4
--- NOTE | 2025-07-12 14:03 | MHC.OFFVIS ---
Vital Signs 07/12/25 14:03 Height 5 ft 7 in Weight 156 lb BMI 24.4 BP 105/55 L Blood Pressure Location Rt brachial Position Sitting Respiration 16 Pulse 86 Pulse Source Pulse Oximeter Pulse Oximetry (%) 96 Oxygen Delivery Method Room Air Intake Visit Reasons: BILATERAL KNEE PAIN Mental Health Advanced Practice Nurse Required: Yes Mental Health Advanced Practice Nurse Name: Yves [id number] Accompanied by: Self / Same As Patient Allergies Gadolinium-Containing Contrast Medi Adverse Reaction (Severe, Verified 07/12/25 14:10) sored throat and sneezing arugla Allergy (Severe, Uncoded 07/20/24 15:07) rash HPI Comments Details: Nestor is very pleasant kazakh speaking 70 years old female who is present in my office with complains on pain in bilateral knees. She reported that this pain was mild until 2 months ago and she did not paid much attention to this pain however 2 months ago patient started to be very severe she reports pain in the left is stronger than pain in the right, she denies any trauma, she never had physical therapy but she is booked for physical therapy appointment in July. She went to emergency room at [facility] where she received x-ray of bilateral knees, the results of this x-ray dye is not available to me, however she explained to me through the bus girl today that the x-ray demonstrated inflammation. She reports that application of heat and massages help the pain very minimally, she never received any injections. Her past medical history significant for paroxysmal palpitations, fatty liver disease. Past surgical history significant for right shoulder surgery for dislocation of the tendon. Social history she denies drinking alcohol denies smoking cigarettes she denies recreational drugs. [facility] Surgical History History of shoulder surgery H/O endoscopy Family History Mother Diabetes Colon cancer Social History Alcohol intake: never Patient Tobacco Use Status: Never used Tobacco Review of Systems Const All systems reviewed & are unremarkable except as noted in HPI and below ENT Reports Normal hearing present Neuro Reports Normal hearing present, Denies Abnormal speech present, Denies confusion and Denies Sensory deficit (Neuro) Psych Denies confusion Physical Exam Vital Signs: Last Vital Signs Pulse 86 07/12/25 14:03 Resp 16 1022/25 14:03 BP 105/55 L 07/12/25 14:03 Pulse Ox 96 07/12/25 14:03 Oxygen Delivery Method Room Air 07/12/25 14:03 BMI result Body Mass Index 24.4 Const General: no acute distress; No confusion Orientation/consciousness: patient oriented x3 and No confusion Eyes General: appearance normal, both eyes and all related structures Pupils: Equal, round and reactive pupils present EOM: EOMs intact bilaterally Neck Neck: Yes full ROM Chest Chest palpation & inspection: normal inspection of the chest Resp Effort & Inspection: normal respiratory effort, able to speak in complete sentences, normal respiratory pattern, no audible wheezes and no cough Cardio Jugular venous distension: no JVD GI Inspection: Yes normal to inspection Neuro General: patient oriented x3, gait normal and No confusion Cranial nerves: Yes CN's II-XII intact bilaterally, Yes Equal, round and reactive pupils present, Yes Normal hearing present and Yes Ability to bilaterally elevate shoulders present Speech: No Abnormal speech present Gait exam (Neuro): Normal gait present Motor exam (neuro): 5/5 motor strength present throughout Sensory Exam: No Sensory deficit (Neuro) Extrem Other: Range of motion on the left knee is severely limited, range of motion of the right knee almost normal. There is no redness no swelling in the projection of the bilateral knees. The patient is able to stand on bilateral knees however walks with a cane because of the pain in the left knee. Anterior cruciate and posterior cruciate ligament tests are negative bilaterally lateral collateral ligaments are negative and knees are stable. There is strong crepitus with motion in the projection of the left knee and minimal crepitus sensation with motion in the projection of the right knee. General: No pedal edema Psych Speech and movement: Normal speech and movement present Affect: normal affect Attitude: cooperative Thought process: Normal thought process present Thought content: Normal thought content present Insight: Good insight present (Psych) Judgement: Good judgement present (Psych) Assessment & Plan Assessment & Plan (1) Osteoarthritis of knees, bilateral: Code(s): M17.0 - Bilateral primary osteoarthritis of knee Category: Medical (2) Bilateral knee pain: Code(s): M25.561 - Pain in right knee; M25.562 - Pain in left knee Category: Medical Qualifiers: Chronicity: chronic Qualified Code(s): M25.561 - Pain in right knee; M25.562 - Pain in left knee; G89.29 - Other chronic pain Plan I told the patient to bring me the report of the bilateral knees x-ray she received that [facility]. I also will schedule her in 1 week to come back here and I will perform bilateral triamcinolone steroid injections into both knees. Meanwhile I recommended her to purchase lidocaine patch 4% [id number] to apply on the knees overnight and I also recommended her to purchase diclofenac sodium to applied to bilateral knees and she can not do it 3 to 4 times a day. Coding Level of Care Code New Pt Level 3 (41709) Diagnoses Osteoarthritis of knees, bilateral M17.0 Chronic pain of both knees M25.561; M25.562; G89.29 Chronicity: chronic
--- OUTSIDE RECORDS SUMMARY | 2025-07-12 20:05 | XMS_ITS | Clinical Summary ---
Author Organization [employer] Address [address] [place] [address] [address] [place] [address] Care Team Providers Care Ticket Sales Agent Name Role Phone Unavailable Primary Care Provider [...] - [facility] [place] [id number]
--- OUTSIDE RECORDS SUMMARY | 2025-07-12 20:05 | XMS_ITS | Data Portability ---
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 Plan of Treatment Reminders Order Date Submit Date Provider Last Modified By Organization Details Last Modified Time Details Appointments None recorded. Lab None recorded. Referral physical therapist referral - SURGERY: Right rotator cuff repair 08/16/24; postop arthrofibro sis 2-3x/week x 6 weeks Evaluate and Treat Goal: - Decrease pain/swelli ng - Increase range of motion - Increase strength and/or endurance Recommended Modalities: - Heat prior to stretching - Ice at the end of the session - Additional modalities prn, but emphasis should be on manual therapy Precautions : WBAT, no motion restriction s Therapeutic Exercise: - Passive, active-assi st, active range of motion as tolerated, focusing on gradual progression over time - Scapular shrugs/retr actions - should be major focus! - Continue with rotator cuff strengtheni ng as per previous protocol Emphasize importance of home program, 2x/day 2024 025 [email or web address] Not available 5 14:29:04 Procedures None recorded. Surgeries None recorded. Imaging XR, knee, 4 or more view - rm 113 4V L knee pain MOHAWK speaking 2024 025 [email or web address] [facility], [address], [place], [address], 5 16:52:28 Medication Orders naproxen 500 mg tablet 2024 025 [id number], [address] [facility], [place], [address], 13:05:31 Patient TargetsNo targets recorded. Patient InstructionsNo instructions recorded. Reason for Referral Physical Therapist Referral for Adhesive capsulitis of right shoulder SURGERY: Right rotator cuff repair 08/16/24; postop arthrofibrosis2-3x/week x 6 weeksEvaluate and TreatGoal: - Decrease pain/swelling - Increase range of motion - Increase strength and/or enduranceRecommended Modalities: - Heat prior to stretching- Ice at the end of the session- Additional modalities prn, but emphasis should be on manual therapyPrecautions: WBAT, no motion restrictionsTherapeutic Exercise: - Passive, active-assist, active range of motion as tolerated, focusing on gradual progression over time- Scapular shrugs/retractions - should be major focus!- Continue with rotator cuff strengthening as per previous protocolEmphasize importance of home program, 2x/day Referring Physician: Chelsie Braxton, Orthopedic Surgery, Encounter Date: 12/16/2024 Results Created Date Observation Date Name Description Value Unit Range Abnormal Flag Note LastModifiedBy Organization Detail LastModifiedTime 08/17/20 24 07/05/2024 MRI, gaurang gabrielle, w/o contr ast No observ ation record ed. [facility] ([facility]) [address], [place], [address], 08/17/2024 08:31:36 12/28/19 25 12/27/2024 XR, knee, 4 or more view [email or web address] ?Encry pted=s hAaTro YD8dLq bEUv6g %2BXZw aYqtaq 0bqfl% 2Fg9IQ a4ajBk vP9nXo QUaueC m3YtLR FvZlgJ JJ8mAn HZtai3 3r6014 AC0KqY 36AVKO kKiQtr MwF INTERFACE [facility] [address], [place], [address], 12/27/2024 10:42:26 12/28/19 25 12/27/2024 XR, knee, 4 or more view [email or web address] ?Encry pted=s hAaTro YD8dLq bEUv6g %2BXZw aYqtaq 0bqfl% 2Fg9IQ a4ajBk vP9nXo QUaueC m3YtLR FvZlgJ JJ8mAn HZtai3 7i8083 AC0KqY 36AVKO kKiQtr MwF INTERFACE [facility] [address], [place], [address], 12/27/2024 10:42:28 Result Notes Documentation Provider Name and Address Organization Details Recorded Time Xr, Knee, 4 Or More View : [email or web address]? Encrypted=gzXfUhoLA0rTqqI Uv6g%6LSTssTzbmz3fxpl%2Fg 5WSx2lvCzwB3tTxFBpygQs6Ij ZEXsQlgLBA7iLbBFbvn10b165 2YO4VaU49EVBPdWxLyyIvJ Not Available [facility] 12/27/2024 10:42: 26 Xr, Knee, 4 Or More View : [email or web address] Encrypted=qmHcFysMS6nNfvD Uv6g%5IBYisDczhv2gcin%2Fg 6XLw3qnPqoQ6uByPRuypVo6Eq ECJbEtqNMH2jYkVMvny94t505 9UT3SoL45IMOEbSeTjbPpY Not Available [facility] 12/27/2024 10:42: 28 Problems Name Problem SNOMED Code Status Onset Date Resolution Date Notes Provider Name and Address Organization Details Recorded Time Injury of tendon of the rotator cuff of shoulder 243541537 Active 2023 Francy Lofton i, PA-C [address], [place], [address], [facility] 11:38:52 Pain of right shoulder joint 491452426054054 00 Active 2023 Francy Lofton i, PA-C [address], [place], [address], [facility] 13:47:54 Problem Notes None recorded. Procedures Surgical History Date Name Laterality Status Provider Name and Address Organization Details Recorded Time 12/28/19 25 Knee Kenalog 40 1cc Injection, Bilateral completed Felipe Miguel PA-C [address], [place], [address], [facility] 12/27/2024 13:23:13 12/17/19 25 Sports Shoulder completed Chelsie Braxton MD [address], [place], [address], [facility] 12/16/2024 14:56:28 08/16/20 24 arthroscopic repair of rotator cuff completed Francy Orta PA-C [email or web address], [place], [address], [facility] 10/18/2024 14:05:39 02/12/20 24 Sports Shoulder completed Chelsie Braxton MD [email or web address] [facility], [place], [address], [facility] 02/12/2024 12:39:56 Imaging Results None recorded. Procedure Notes None recorded. Medical Equipment None Reported. Allergies Allergen ID Allergen Name Allergen Category Reaction Reaction Severity Criticality Documentation Date Start Date Code Code System Note Provider Name and Address Organization Details Recorded Time 322660 Iodinated contrast media (substanc e) medicatio n Not available Not available Not available 01/29/2024 88833 2003 SNOMED DIANA vaughan [facility] 10:28:20 Medications Name Sig Start Date Stop Date Status Note LastModified by Organization Details LastModified Time celecoxib 200 mg capsule TAKE 1 CAPSULE (200 MG) BY ORAL ROUTE 2 TIMES PER DAY FOR 28 DAYS 08/22 completed Not Available Not Available Not Available amoxicillin 500 mg capsule TAKE 1 CAPSULE BY MOUTH THREE TIMES A DAY 07/23 completed Not Available Not Available Not Available cetirizine 10 mg tablet TAKE 1 TABLET BY MOUTH EVERY DAY active Not Available Not Available No t Available aspirin 325 mg tablet TAKE 1 TABLET (325 MG) BY ORAL ROUTE ONCE DAILY FOR 14 DAYS 02/27 completed Not Available Not Available Not Available tramadol 50 mg tablet Take 1 tablet at night as needed for severe pain. 02/27 completed Not Available Not Available Not Available acetaminoph en 500 mg tablet TAKE 2 TABLET (1000 MG) BY MOUTH 3 TIMES A DAY 02/27 completed Not Available Not Available Not Available lidocaine 5 % topical patch APPLY 1 PATCH TOPICALLY DAILY NEEDED FOR MILD PAIN REMOVE AFTER 12 HOURS 02/27 completed Not Available Not Available Not Available docusate sodium 100 mg capsule TAKE 1 CAPSULE (100 MG) BY ORAL ROUTE ONCE DAILY NEEDED FOR 30 DAYS 02/27 completed Not Available Not Available Not Available naproxen 500 mg tablet Take 1 tablet twice a day by oral route for 14 days. 02/27 completed Not Available Not Available Not Available oxycodone 5 mg tablet TAKE 1 TABLET BY MOUTH EVERY 4 HOURS NEEDED 02/27 completed Not Available Not Available Not Available DentaGel 1.1 % USE FOR BRUSHING BY MOUTH ONCE DAILY FOR 30 DAYS 04/21 completed Not Available Not Available Not Available Vitals Date Recorded Body height Body mass index (BMI) Body weight Provider Name and Address Organization Details Last Updated DateTime 10/18/2024 165.1 cm 25.6 kg/m2 73659.22 g DAVID MORRIS [facility] 10/18/2024 13:45:16 Date Recorded Body height Body mass index (BMI) Body weight Provider Name and Address Organization Details Last Updated DateTime 12/16/2024 165.1 cm 25.6 kg/m2 57871.22 g DIANA ALDRIDGE [facility] 12/16/2024 14:10:53 Date Recorded Body height Provider Name an d Address Organization Details Last Updated DateTime 12/27/2024 165.1 cm ADE GOEL [facility] 12/27/2024 10:28:02 Date Recorded Body height Body mass index (BMI) Body weight Provider Name and Address Organization Details Last Updated DateTime 02/27/2025 165.1 cm 25.6 kg/m2 56757.22 g DIANAKARO KRAUSERO [facility] 02/27/2025 13:05:19 Date Recorded Body height Body mass index (BMI) Body weight Body temperature Provider Name and Address Organization Details Last Updated DateTime 08/29/2024 165.1 cm 25.6 kg/m2 44112.22 g 97.1 [degF] DIANA LUIS CARLOS [facility] 08/29/2024 14:52:52 Social History Question Answer Notes LastModified by [employer] Details LastModified Time Tobacco Smoking Status Never Smoker DUSTIN vaughan [facility] 06/14/2024 13:07:55 Which Of Your Hands Is Dominant? Right [email or web address] Information not available 04/21/2024 Sex: Unknown Functional Status Question Answer Note LastModified by [employer] Details LastModified Time Do you use any illicit or recreational drugs? No Information not available 06/14/2024 Do you or have you ever used any other forms of tobacco or nicotine? No Information not available 06/14/2024 What is your level of alcohol consumption? None Information not available 06/14/2024 Mental Status None recorded. Family History Nothing Reported. Medical History Condition Response Allergies/Hayfever N Coronary Artery Disease N Anxiety/Depression N Breathing or lung disorders N Emphysema N Nerve Disorders N Thyroid Problems N COPD N Pacemaker N Anemia N Kidney/Bladder Problems N Vascular Disease N Heart Trouble N Heart Attack (CA) N Cholesterol N Diabetes N Autoimmune disease N Bleeding Disorder N Orthotics N Arthritis N Seizures/Epilepsy N Blood Clot N AIDS/HIV N Congestive Heart Failure (CHF) N Acid Reflux (GERD) Y Cancer N Stroke N Asthma N Circulation Problems N Peripheral Vascular Disease N Sleep Apnea N Hepatitis N Heart Disease N Rheumatoid Arthritis N Arrhythmia N Pulmonary Embolism N Headaches N Fibromyalgia N Hypertension N Osteoporosis N Gynecological HistoryNo gynecological history recorded. Obstetrics History GPAL:G 0 P 0 0 0 0 Past Encounters Encounter ID Performer Location Encounter Start Date Encounter Closed Date Diagnosis/Indication Diagnosis SNOMED-CT Code Diagnosis ICD10 Code Diagnosis IMO Codes Diagnosis Note [id number] MD [facility] [address] [place] [address] 02/12/2024 11:19:42 02/24/2024 15:52:22 Impingement syndrome of right shoulder region 0248427616 73707 M75.41 [id number] JORGE [facility] [address] [place] [address] 06/14/2024 12:54:11 06/27/2024 11:27:00 Injury of tendon of the rotator cuff of shoulder 222527588 S46.001D [id number] JORGE [facility] [address] [place] [address] 07/14/2024 12:53:40 08/03/2024 07:39:42 Injury of tendon of the rotator cuff of shoulder 193044939 S46.001D [id number] MD [facility] [address] [place] [address] 07/23/2024 08:09:56 08/17/2024 09:12:12 Pain of right shoulder joint 6042061427 8941528 M25.511 616879 Full thick ness rotator cuff tear 218604321 M75.300 [id number] MD [facility] [address] [place] [address] 08/29/2024 14:39:14 09/27/2024 07:31:54 Follow-up orthopedic assessment 660114367 Z47.89 [id number] Francy Orta PA-C [facility] [address] [place] [address] 10/18/2024 13:37:21 11/04/2024 08:33:27 Follow-up orthopedic assessment 652924359 Z47.89 [id number] MD [facility] [address] [place] [address] 12/16/2024 14:01:25 01/02/2025 14:29:03 Adhesive capsulitis of right shoulder 7696843078 13058 M75.01 2444673 [id number] JORGE [facility]irre [address] [place] [address] 12/27/2024 10:23:41 01/11/2025 08:02:25 Pain of left knee joint 4224918088 69683 M25.562 042785 Patellofem oral syndrome of bilateral knees 6204826500 8411940 M22.2X1 M22.2X2 [id number] MD [facility] 2[address] [place] [address] 02/27/2025 12:56:27 03/14/2025 13:52:59 Follow-up orthopedic assessment 488671281 Z47.89 82419863 Health Concerns Section Related Observation LastModified by Organization Detai ls LastModified Time None Recorded Concern Status LastModified by Organization Details LastModified Time None Recorded Advance Directives Directive None Recorded Payers Insurance Date Sequence Insurance Name Policy Number Policy Jena Covered Member ID Jean Member ID Guarantor Name 12/16/2024 1 [employer] - DUAL ELIGIBLE - [place] - [facility] (MEDICARE REPLACEMENT/ ADVANTAGE - HMO) Radhiyah Msadq [id number] Radhiyah Msadq 12/16/2024 1 [employer] - [place] - DUAL ELIGIBLE - [place] (MEDICARE REPLACEMENT/ ADVANTAGE - HMO) Radhiyah Msadq [id number] Radhiyah Msadq 12/16/2024 1 [employer] - DUAL ELIGIBLE - [place] - [facility] (MEDICARE REPLACEMENT/ ADVANTAGE - HMO) Radhiyah Msadq [id number] Radhiyah Msadq 10/18/2024 1 [facility] [place] (MEDIC[place] RE[place]/ [place]VANTAGE - [place]MO) Radhiyah Msadq [id number] Radhiyah Msadq Notes Date Note Type Note Provider Name and Address Organization Details Recorded Time 08/29/2024 text/html Surgery: Right arthroscopic 1+1 double row supraspinatus repair, arthroscopic long head biceps tenodesis, SAD DCE, lysis of adhesions, 08/16/2024 Interval History: The patient returns today in follow-up now 2 weeks out from surgery as above. Intraoperatively, found to have an evolving adhesive capsulitis with significant inflammatory tissue throughout the shoulder. As such, we had planned to start physical therapy a bit earlier than usual in hopes of maintaining the range of motion that we are able to achieve and surgery. Unfortunately, it seems as if this was lost in translation, in part because the patient seems to have been given quite a bit of mis-information by what sounds like a visiting nurse (not arranged by us). The visiting nurse also told her she could d/c her sling at 3 days, and the patient has only intermittently been using a simple sling for the arm since then.... No issues with incisions. No numbness or tingling in arm or hand. We have not yet let the patient return to work. Past family, medical, social history and review of systems have been reviewed and updated on the medical history sheet saved to the patient's chart. A 12-point review of systems is negative x12 except as noted above and/or on the medical history sheet. Examination: Pleasant 69-year-old woman in no acute distress. On exam of the Right upper extremity, arthroscopic portal incisions are healing nicely. No significant swelling or bruising. No evidence for Aron deformity. Did not attempt range of motion of the shoulder today. Sensation intact in axillary and LABC distributions. Fires EPL, FPL and intrinsics. Hand is warm and well perfused. 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 Unfortunately quite a bit of miscommunication, largely in part due to a visiting nurse who was clearly not versed in the surgery the patient had done and my postop protocol. Hopefully no lasting damage has been done. Plan: We will have the patient continue with sling use for another 4 weeks, though discussed that it is okay to begin taking some breaks from the sling when in a safe, quiet environment with the arm supported on the lap. We will start in with physical therapy at approximately 2 weeks postop. Copies of the therapy prescription and protocol were given to the patient today and scanned into the patient chart for future reference if needed. Therapy will consist of passive range of motion only to start, incorporating active assist range of motion at 6 weeks, active range of motion at 9 weeks, isometrics at 12 weeks and more advanced strengthening at 14 weeks postop. The patient will follow up with Ms. Francy Davis PA-C in 6 weeks to check on how the first few weeks of therapy have gone. I will plan to see the patient back at 4 months post-op, just before initiation of the strengthening phase of therapy. [employer] speech recognition art manager software was used to create portions of this document. An attempt at proofreading has been made to minimize errors. Please call for corrections. Chelsie Braxton MD [address] [place] [address], [place], [address], [facility] 08/29/2024 15:17:05 10/18/2024 text/html I am seeing the patient today under the supervision of Dr. Bobby who was available but who did not see the patient. Surgeon: Dr. BraxtonProcedure: Right shoulder arthroscopic 1+1 double row supraspinatus repair, arthroscopic long head biceps tenodesis, SAD DCE, lysis of adhesionsDate of procedure:08/16/2024 Interval History:Patient returns today in follow-up now 2 months out from surgery above. [employer] service used for appointment today. Patient has weaned from the sling. She has started physical therapy as instructed at [facility] at around 2-3 weeks post-operatively she reports. She reports ongoing severe pain 8/10. She is taking tylenol. She is upset she is not seeing the surgeon today. Denies incision issues. Denies numbness/tingling in the arm or hand. Intraoperatively, found to have an evolving adhesive capsulitis with significant inflammatory tissue throughout the shoulder. As such, Dr. Braxton had planned to start physical therapy a bit earlier than usual in hopes of maintaining the range of motion that we were able to achieve during surgery, however, this did not occur due in part to misinformation provided to the patient from an outside visiting nurse (not arranged by us). Visiting nurse told patient to discontinue sling after 3 days. Past family, medical, social history and review of systems have been reviewed and updated on the medical history sheet saved to the patient's chart. A 12-point review of systems is negative x12 except as noted above and/or on the medical history sheet. Phys. Exam:Pleasant 69-year-old woman in no acute distress. Alert and oriented.Right upper extremity: Arthroscopic portal incisions are well healed. No significant swelling or bruising. No evidence for Aron deformity. Shoulder PROM flexion 90 tight, ER 15. Deferred strength testing today. Sensation intact in axillary and LABC distributions. Fires EPL, FPL and intrinsics. Hand is warm and well perfused. Imaging: Deferred. 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 Braxton 08/16/24, had miscommunication from a visiting nurse who did not follow post-operative surgical protocol thus had a later start to physical therapy, struggling with postoperative pain Plan: Patient has weaned from sling. She has started physical therapy at [facility] around 2-3 weeks after surgery. Therapy will consist of passive range of motion only to start, incorporating active assist range of motion at 6 weeks, active range of motion at 9 weeks, isometrics at 12 weeks and more advanced strengthening at 14 weeks postop. Discussed postoperative restrictions including no heavy lifting anything greater than a coffee cup. Reassurance provided that pain is normal especially at night at this point in recovery. Naproxen 500 mg twice daily was sent to her pharmacy, instructed to take this with food and avoid other NSAID medications. She may continue to use the Tylenol as well and ice. Recommended diligent range of motion exercises at home as instructed by her physical therapist. We may need to consider a cortisone injection at her next visit as she is quite stiff and painful today. Patient will follow up with Dr. Braxton at 4 months post-operatively, just before initiation of the strengthening phase of therapy sooner if any concerns. [facility] speech recognition art manager software was used to create portions of this document. An attempt at proofreading has been made to minimize errors. Please call for corrections. Frnacy Orta PA-C [address] [facility] [address] [facility], [place], [address], [facility] 10/18/2024 14:28:41 12/16/2024 text/html Surgery: Right arthroscopic 1+1 double row supraspinatus repair, arthroscopic long head biceps tenodesis, SAD DCE, lysis of adhesions, 08/16/2024 Interval History: The patient returns today in follow-up now approximately 4 months out from surgery as above. Doing fairly well, with improvements in pain, but continued struggles with stiffness. Therapy ended a bit early, patient has tried to continue with stretching on her own at home. No issues with incisions. No numbness or tingling in arm or hand. Past family, medical, social history and review of systems have been reviewed and updated on the medical history sheet saved to the patient's chart. A 12-point review of systems is negative x12 except as noted above and/or on the medical history sheet. Examination: Pleasant 69-year-old woman in no acute distress. On exam of the Right upper extremity, arthroscopic portal incisions are nicely healed. No significant swelling or bruising. No evidence for Aron deformity. Active forward elevation 90, passive 140; passive ER 30; IR not even to the greater trochanter. Strength grossly intact with submaximal isometric cuff testing, with modest pain. Sensation intact in axillary and LABC distributions. Fires EPL, FPL and intrinsics. Hand is warm and well perfused. Imaging: Deferred Impression: 69-year-old rjles-xbib-xpjmeifp Armenian speaking woman, now approximately 4 months out from surgery as above. Doing fairly well thus far. Plan: Will go forward with cortisone injection today to see if we can help facilitate efforts at stretching. New prescription for PT provided. If we cannot get more PT visits approved, discussed the importance of home stretching on her own at least 3 times a day. We will have the patient continue with therapy, working on end-range stretching and continued gradual progression of strengthening. Reminded the patient that we are still early in the healing phase following surgery and that it will take another 2 months for the repair to reach 85% strength of the normal tendon. As such, we need to continue to progress slowly and be cautious with the use of the arm. Encouraged the patient to use the instructions/restricti ons/precautions provided in PT as a guide to what they can/should not do on their own at home. Anticipate residual discomfort will continue to improve as motion and mechanics improve and as the repair continues to heal and mature. Will plan to see the patient back in another 2 months for likely last recheck. [facility] speech recognition art manager software was used to create portions of this document. An attempt at proofreading has been made to minimize errors. Please call for corrections. Chelsie Braxton MD [facility] [place] [address], [place], [address], [facility] - [facility] 12/16/2024 14:58:56 12/27/2024 text/html ROS as noted in the HPI I am seeing the patient today under the supervision of Dr. Bobby who was available but who did not see the patient. HPI:Patient is a 69-year-old Armenian speaking female who presents to the office today for bilateral knee pain. Patient's been previously seen in our office and diagnosed with patellofemoral syndrome. Has undergone 1 cortisone injection a while back which did seem to alleviate a lot of her symptoms. Has also undergone multiple rounds of outpatient physical therapy which have helped her. Over the last 2 weeks has noticed an increase in pain and tightness in her knees. Pain located primarily over the anterior aspect. Knee pain is equal in both knees. Increased pain with prolonged sitting, getting up from a seated position as well as prolonged standing and walking. Has been utilizing gabapentin for pain relief. Denies any catching or locking. Past family, medical, social history and review of systems has been reviewed, updated and is located in the patient s chart. Examination: Well-appearing 69-year-old female in no acute distress. Alert and oriented x 3. Ambulates with a symmetric gait. Bilateral knees reveal no erythema, warmth, ecchymosis, swelling. Tenderness primarily over the anterior aspect of the knee. No medial or lateral joint line tenderness. Range of motion from 0-125 degrees. Mild crepitance noted. Knees are stable to valgus and varus stress testing. Knee strength 5/5 at resistance with flexion and extension. Negative Criss test bilaterally. Negative Louis's maneuver bilaterally. Calves are soft and nontender. 4 views of the bilateral knees obtained and independently reviewed in the office today reveal fairly well-preserved joint spacing the medial lateral joint compartment of the left knee. There is some slight degeneration medially of the right knee. Patellofemoral joints fairly well-preserved with slight degeneration in the left knee. No fracture noted. Impression:Bilateral knee patellofemoral syndrome Plan:We discussed the role of conservative management including medications, physical therapy, injection and bracing. At this point the patient was to proceed with injection. Please see procedure note. Will continue with home exercise program. Will continue with Gabapentin for pain as well as sesmnwe-dod-padupji medications deemed necessary for pain relief. Follow-up as needed. All patient questions and concerns answered today. Felipe Miguel PA-C [address] [facility] [address], [place], [address], [facility] 12/27/2024 13:23:59 02/27/2025 text/html Surgery: Right arthroscopic 1+1 double row supraspinatus repair, arthroscopic long head biceps tenodesis, SAD DCE, lysis of adhesions, 08/16/2024 Interval History: The patient returns today in follow-up now approximately 6 months out from surgery as above. Doing fairly well, with improvements in pain, but continued struggles with stiffness. Therapy ended a bit early, patient has tried to continue with stretching on her own at home. We did a cortisone injection at her last appointment 12/16/2024, which provided good relief for about 6 weeks. She was able to resume PT and has made some progress with motion. STill complains of lateral and anterior shoulder pain with end-range motion and with lifting. No issues with incisions. No numbness or tingling in arm or hand. Past family, medical, social history and review of systems have been reviewed and updated on the medical history sheet saved to the patient's chart. A 12-point review of systems is negative x12 except as noted above and/or on the medical history sheet. Examination: Pleasant 69-year-old woman in no acute distress. On exam of the Right upper extremity, arthroscopic portal incisions are nicely healed. No significant swelling or bruising. No evidence for Aron deformity. Active forward elevation 140, passive 155; passive ER 40; IR to back pocket (all improved from prior). Strength grossly intact with submaximal isometric cuff testing, with modest pain with resisted ER > empty can. Sensation intact in axillary and LABC distributions. Fires EPL, FPL and intrinsics. Hand is warm and well perfused. Imaging: Deferred Impression: 69-year-old oho[employer]-flmb-daxhoepa Armenian speaking woman, now approximately 6 months out from surgery as above. Initial struggles with postop stiffness. Motion has improved somewhat, though still with some pain, worst with end range of motion suggesting postop adhesions. Plan: Will have the patient finish out the prescribed physical therapy, continue with stretching exercises on her own at home. I am hopeful that as her motion continues to improve, her pain levels will improve as well. I have encouraged the patient to continue with a slow and steady progression of strengthening activities, working up to higher reps before increasing the amount of weight or resistance. With day-to-day activities, may gradually increase what she is doing. Discussed the importance of listening to her body, stopping if there is pain. Also discussed the importance of good mechanics, including keeping weight close to the body, avoiding lifting an awkward positions with weight away from the body, and using slow controlled movements always. For occasional aches and pains, she can take oghu-dee-usdterx medication such as Tylenol or anti-inflammatories as needed; risks and benefits of medication discussed. Should call with more persistent pain. We will leave follow up open ended at this point. However should symptoms worsen or fail to improve to the patient's satisfaction, she is encouraged to give the office a call to be seen back for further evaluation and management. [facility] speech recognition art manager software was used to create portions of this document. An attempt at proofreading has been made to minimize errors. Please call for corrections. Chelsie Braxton MD [address] [place], [place] [address] [facility], [place], [address], [facility] 02/27/2025 13:19:58 OBGyn Episode No OBEpisode recorded.
--- OUTSIDE RECORDS SUMMARY | 2025-07-12 20:05 | XMS_ITS | Encounter Summary ---
Author Organization [employer] Address [address] [place] [address] Care Team Providers Care Mold Repairer Name Role Phone Unavailable Primary Care Provider Unavailabl e Encounter Details Date Type Department Care Team (Late st Contact Info) Description 08/20/2023 Abstract [facility] [address] [place] [address] Norberto Jain DDS [address] [place] [address] Social History Tobacco Use Types Packs/Day Years [...]
== END 2025-07-12 14:34 | disposition home or self-care (01) ==
LOC: HO.PMC 14:00
PROVIDERS: PCP Nurse Practitioner Adult Health; Visit Provider Anesthesiology
DX: M17.0 Bilateral primary osteoarthritis of knee (principal); M25.561 Pain in right knee; M25.562 Pain in left knee; G89.29 Other chronic pain
CPT/HCPCS: 99203

== ENCOUNTER 2025-07-19 10:41 | Outpatient (AMB) | payer OTHER, SELFPAY ==
[2025-07-19 10:55] VITALS: BP 117/61; PULSE 87; RESP 16; O2SAT 99; BMI 24.4
--- NOTE | 2025-07-19 10:55 | A.OFFVIS_ITS ---
Vital Signs 07/19/25 10:55 Height 5 ft 7 in Weight 156 lb BMI 24.4 BP 117/61 Blood Pressure Location Rt brachial Position Sitting Respiration 16 Pulse 87 Pulse Source Pulse Oximeter Pulse Oximetry (%) 99 Oxygen Delivery Method Room Air Intake Visit Reasons: Bilateral Knee Inj. Per Dr. Trujillo Low Heel Builder Required: Yes Low Heel Builder Name: Katharina [id number] Accompanied by: Allergies Gadolinium-Containing Contrast Medi Adverse Reaction (Severe, Verified 07/19/25 10:56) sored throat and sneezing arugla Allergy (Severe, Uncoded 07/20/24 15:07) rash HPI Comments Details: Nestor is back in my office to receive bilateral knee injection. She brought with herself a disc on which there were reports of the bilateral knee x-rays. The results are dictated as below. I performed bilateral knee steroid injections for this patient. See description of the procedure as below. Prior: very pleasant german speaking 70 years old female who is present in my office with complains on pain in bilateral knees. She reported that this pain was mild until 2 months ago and she did not paid much attention to this pain however 2 months ago patient started to be very severe she reports pain in the left is stronger than pain in the right, she denies any trauma, she never had physical therapy but she is booked for physical therapy appointment in July. She went to emergency room at [facility] where she received x-ray of bilateral knees, the results of this x-ray dye is not available to me, however she explained to me through the metal precision machine assembler today that the x-ray demonstrated inflammation. She reports that application of heat and massages help the pain very minimally, she never received any injections. Her past medical history significant for paroxysmal palpitations, fatty liver disease. Past surgical history significant for right shoulder surgery for dislocation of the tendon. Social history she denies drinking alcohol denies smoking cigarettes she denies recreational drugs. [facility] Surgical History History of shoulder surgery H/O endoscopy Family History Mother Diabetes Colon cancer Social History Alcohol intake: never Patient Tobacco Use Status: Never used Tobacco Review of Systems Const All systems reviewed & are unremarkable except as noted in HPI and below ENT Reports Normal hearing present Neuro Reports Normal hearing present, Denies Abnormal speech present, Denies confusion and Denies Sensory deficit (Neuro) Psych Denies confusion Physical Exam Vital Signs: Last Vital Signs Pulse 87 07/19/25 10:55 Resp 16 07/19/25 10:55 BP 117/61 07/19/25 10:55 Pulse Ox 99 07/19/25 10:55 Oxygen Delivery Method Room Air 07/19/25 10:55 BMI result Body Mass Index 24.4 Const General: no acute distress; No confusion Orientation/consciousness: patient oriented x3 and No confusion Eyes General: appearance normal, both eyes and all related structures Pupils: Equal, round and reactive pupils present EOM: EOMs intact bilaterally Neck Neck: Yes full ROM Chest Chest palpation & inspection: normal inspection of the chest Resp Effort & Inspection: normal respiratory effort, able to speak in complete sentences, normal respiratory pattern, no audible wheezes and no cough Cardio Jugular venous distension: no JVD GI Inspection: Yes normal to inspection Neuro General: patient oriented x3, gait normal and No confusion Cranial nerves: Yes CN's II-XII intact bilaterally, Yes Equal, round and reactive pupils present, Yes Normal hearing present and Yes Ability to bilaterally elevate shoulders present Speech: No Abnormal speech present Gait exam (Neuro): Normal gait present Motor exam (neuro): 5/5 motor strength present throughout Sensory Exam: No Sensory deficit (Neuro) Extrem Other: Range of motion on the left knee is severely limited, range of motion of the right knee almost normal. There is no redness no swelling in the projection of the bilateral knees. The patient is able to stand on bilateral knees however walks with a cane because of the pain in the left knee. Anterior cruciate and posterior cruciate ligament tests are negative bilaterally lateral collateral ligaments are negative and knees are stable. There is strong crepitus with motion in the projection of the left knee and minimal crepitus sensation with motion in the projection of the right knee. General: No pedal edema Psych Speech and movement: Normal speech and movement present Affect: normal affect Attitude: cooperative Thought process: Normal thought process present Thought content: Normal thought content present Insight: Good insight present (Psych) Judgement: Good judgement present (Psych) Results Reviewed Results Reviewed: 07/18/2025 x-ray of the knee bilateral left and right. Findings: On the right there is no evidence of acute or healing fracture, dislocation or bone lesion. Mild tricompartmental degenerative osteoarthritis but no evidence of osteochondral defects or intra-articular loose body. Left knee: There is no evidence of acute healing fracture dislocation or bone lesion. Mild tricompartmental degenerative osteoarthritis but no evidence of osteochondral defects or intra-articular loose body. Impression bilateral mild tricompartmental degenerative osteoarthritis but no acute abnormalities. Assessment & Plan Assessment & Plan (1) Osteoarthritis of knees, bilateral: Code(s): M17.0 - Bilateral primary osteoarthritis of knee Category: Medical (2) Bilateral knee pain: Code(s): M25.561 - Pain in right knee; M25.562 - Pain in left knee Category: Medical Qualifiers: Chronicity: chronic Qualified Code(s): M25.561 - Pain in right knee; M25.562 - Pain in left knee; G89.29 - Other chronic pain Plan: Bilateral intra-articular knee steroid injection. Using aerobic metal precision machine assembler I explained to the patient risks and benefits of the procedure. Patient agreed to go for the injection. Risks of the infection and bleeding were explained to the patient. Risks of the iatrogenic diabetes was explained to the patient. Triamcinolone medication [place] [id number] expiration 6. This medication was mixed sterilely into syringes with [place]pivacaine 0.5% [place] [id number] expiration 2026 Anterior lateral surfaces of the bilateral knees were prepped with ChloraPrep. After that in sterile condition 5 cc of ropivacaine mixed with 20 mg of triamcinolone was injected into each knee. The patient tolerated the procedure well. The Band-Aids were applied upon needle removal.. Plan I performed knee injections as above. I explained to the patient that she might need the injection in 3 months however I prefer that we will wait longer, up to 1 year. If pain relief will last less than 3 months she would need to come to this office and discuss other possibilities of treating her pain. Next appointment as needed. Coding Level of Care Code Est Pt Level 3 (55822) Procedure Only Diagnoses Osteoarthritis of knees, bilateral M17.0 Chronic pain of both knees M25.561; M25.562; G89.29 Chronicity: chronic
--- OUTSIDE RECORDS SUMMARY | 2025-07-19 13:19 | XMS_ITS | Data Portability ---
Author Organization [place] - Demarcus Tidwell formerly [facility], [facility] Address [address] [place] [address] Care Team Providers Care Community Health Promoter Name Role Phone [facility] Primary Care Provider Assessment No assessment recorded. Plan of Treatment Reminders Order Date Submit Date Provider Last Modified By Organization Details Last Modified Time Details Appointments RECHECK 15 2024 01:30P M Felipe Miguel PA-C Not available Not available Not available Lab None recorded. Referral physical therapist referral - SURGERY: Right rotator cuff repair 08/16/24; postop arthrofib rosis 2-3x/week x 6 weeks Evaluate and Treat Goal: - Decrease pain/swel ling - Increase range of motion - Increase strength and/or endurance Recommend ed Modalitie s: - Heat prior to stretchin g - Ice at the end of the session - Additiona l modalitie s prn, but emphasis should be on manual therapy Precautio ns: WBAT, no motion restricti ons Therapeut ic Exercise: - Passive, active-as sist, active range of motion as tolerated , focusing on gradual progressi on over time - Scapula r shrugs/re tractions - should be major focus! - Continue with rotator cuff strengthe aditya as per previous protocol Emphasize importanc e of home program, 2x/day 2024 025 [email or web address] Not available 01/02/2025 14:29:04 Procedures None recorded. Surgeries None recorded. Imaging XR, knee, 4 or more view - rm 113 4V L knee pain GEORGIAN speaking 2024 025 [email or web address], [address], [place], [address], 12/27/2024 16:52:28 Medication Orders naproxen [address] [facility][id number], [address], [place], [address], 02/27/2025 13:05:31 Patient TargetsNo targets recorded. Patient InstructionsNo [...] Organization Detail LastModifiedTime 08/17/20 24 07/05/2024 MRI, shoul gabrielle, w/o contr ast No observ ation record ed. BARCODE [facility] [address], [place], [address], 08/17/2024 08:31:36 12/28/19 25 12/27/2024 XR, knee, 4 or more view http:/ [email or web address] ?Encry pted=s hAaTro YD8dLq bEUv6g %2BXZw aYqtaq 0bqfl% 2Fg9IQ a4ajBk vP9nXo QUaueC m3YtLR FvZlgJ JJ8mAn HZtai3 0a1251 AC0KqY 36AVKO kKiQtr MwF INTERFACE [facility] [address], [place], [address], 12/27/2024 10:42:26 12/28/19 25 12/27/2024 XR, knee, 4 or more view http:/ [email or web address] ?Encry pted=s hAaTro YD8dLq bEUv6g %2BXZw aYqtaq 0bqfl% 2Fg9IQ a4ajBk vP9nXo QUaueC m3YtLR FvZlgJ JJ8[place] HZtai3 7y2528 AC0KqY 36AVKO kKiQtr MwF INTERFACE [facility] [address], [place], [address], 12/27/2024 10:42:28 Result Notes Documentation Provider Name and Address Organization Details Recorded Time Xr, Knee, 4 Or More View : [email or web address] Encrypted=opQnVejOF2sAauV Uv6g%3GSCplRkjgv2jaiu%2Fg 0MGv7bwYezM6yWlIGxxhTj4Aa SGMsZmjSNN8rInBOpug57v995 4IM0CiD50RVAHjIhPmmYcE Not Available [facility] 12/27/2024 10:42: 26 Xr, Knee, 4 Or More View : [email or web address] Encrypted=nnXjOzlHE2gCttA Uv6g%5ZWOnxWibfv8tqzm%2Fg 6BCv7djOtlF0eGuLEfvfYz6Jg HKWqWazYDP4pTkPHcaq15l714 2JF1AvH52SLBEeQxZpmEgH Not Available [facility] 12/27/2024 10:42: 28 Problems Name Problem SNOMED Code Status Onset Date Resolution Date Notes Provider Name and Address Organization Details Recorded Time Injury of tendon of the rotator cuff of shoulder 106022518 Active 2023 Francy Lofton i, PA-C [address], [place], [address], [facility] 11:38:52 Pain of right shoulder joint 260735746008242 00 Active 2023 Francy Lofton i, PA-C [address], [place], [address], [facility] 13:47:54 Problem Notes None recorded. Procedures Surgical History Date Name Laterality Status Provider Name and Address Organization Details Recorded Time 12/28/19 25 Knee Kenalog 40 1cc Injection, Bilateral completed Felipe Miguel PA-C [address] [facility], [place], [address], [facility] 12/27/2024 13:23:13 12/17/19 25 Sports Shoulder completed Chelsie Braxton MD [address] [facility], [place], [address], [facility] 12/16/2024 14:56:28 08/16/20 24 arthroscopic repair of rotator cuff completed Francy Orta PA-C [address], [place], [address], [facility] 10/18/2024 14:05:39 02/12/20 24 Sports Shoulder completed Chelsie Braxton MD [address] [facility], [place], [address], [facility] 02/12/2024 12:39:56 Imaging Results None recorded. Procedure Notes None recorded. Medical Equipment None Reported. Allergies Allergen ID Allergen Name Allergen Category Reaction Reaction Severity Criticality Documentation Date Start Date Code Code System Note Provider Name and Address Organization Details Recorded Time 814239 Iodinated contrast media (substanc e) medicatio n Not available Not available Not available 01/29/2024 38012 2003 SN[facility]ED [facility] 10:28:20 Medications Name Sig Start Date [...] Updated DateTime 10/18/2024 165.1 cm 25.6 kg/m2 29309.22 g DAVID MORRIS [facility] 10/18/2024 13:45:16 Date Recorded Body height Body mass index (BMI) Body weight Provider Name and Address Organization Details Last Updated DateTime 12/16/2024 165.1 cm 25.6 kg/m2 54458.22 g DIANA ALDRIDGE [facility] 12/16/2024 14:10:53 Date Recorded Body height Provider Name an d Address Organization Details Last Updated DateTime 12/27/2024 165.1 cm ADE GOEL [facility] 12/27/2024 10:28:02 Date Recorded Body height Body mass index (BMI) Body weight Provider Name and Address Organization Details Last Updated DateTime 02/27/2025 165.1 cm 25.6 kg/m2 49645.22 g DIANA KRAUSERO [facility] 02/27/2025 13:05:19 Date Recorded Body height Body mass index (BMI) Body weight Body temperature Provider Name and Address Organization Details Last Updated DateTime 08/29/2024 165.1 cm 25.6 kg/m2 77527.22 g 97.1 [degF] DIANA LUIS CARLOS [facility] 08/29/2024 14:52:52 Social History Question Answer Notes LastModified by Organizat ion Details LastModified Time Tobacco Smoking Status Never Smoker [facility] 06/14/2024 13:07:55 Which Of Your Hands Is Dominant? Right [email or web address] Information not available 04/21/2024 Sex: Unknown Functional Status Question Answer Note LastModified by Organizat ion Details LastModified Time Do you use any [...] Disease N Heart Trouble N Heart Attack ([place]) N Cholesterol N Diabetes N Autoimmune disease [...] ICD10 Code Diagnosis IMO Codes Diagnosis Note [id number] MD Galina Foreman [address] [place] [address] 02/12/2024 11:19:42 02/24/2024 15:52:22 Impingement syndrome of right shoulder region 5262643281 01366 M75.41 [id number] JORGE Moody [address] [place] [address] 06/14/2024 12:54:11 06/27/2024 11:27:00 Injury of tendon of the rotator cuff of shoulder 816561425 S46.001D [id number] JORGE Moody [address] [place] [address] 07/14/2024 12:53:40 08/03/2024 07:39:42 Injury of tendon of the rotator cuff of shoulder 618870979 S46.001D [id number] MD Galina Foreman [address] [place] [address] 07/23/2024 08:09:56 08/17/2024 09:12:12 Pain of right shoulder joint 9933603112 1011580 M25.511 472091 Full thick ness rotator cuff tear 183536979 M75.393 [id number] MD Galina Foreman [address] [place] [address] 08/29/2024 14:39:14 09/27/2024 07:31:54 Follow-up orthopedic assessment 311598228 Z47.89 [id number] Francy Orta PA-C [facility] [place] [address] 10/18/2024 13:37:21 11/04/2024 08:33:27 Follow-up orthopedic assessment 014546837 Z47.89 [id number] MD [facility] Foreman 2nd floor [address] [place] [address] 12/16/2024 14:01:25 01/02/2025 14:29:03 Adhesive capsulitis of right shoulder 0312347427 81870 M75.01 4405519 [id number] JORGE Aguirre [address] [address] 12/27/2024 10:23:41 01/11/2025 08:02:25 Pain of left knee joint 0634824387 82330 M25.562 045686 Patellofem oral syndrome of bilateral knees 9444566325 2505890 M22.2X1 M22.2X2 29561676 [id number] MD [facility] Foreman 2nd floor [address] [place] [address] 02/27/2025 12:56:27 03/14/2025 13:52:59 Follow-up orthopedic assessment 474183902 Z47.89 [id number] Health Concerns Section Related Observation LastModified by Organization Detai ls LastModified Time None Recorded Concern Status LastModified by Organization Details LastModified Time None Recorded Advance Directives Directive None Recorded Payers Insurance Date Sequence Insurance Name Policy Number Policy Jean Covered Member ID Jean Member ID Guarantor Name 12/16/2024 1 [employer] - DUAL ELIGIBLE - [place] - [facility] (MEDICARE REPLACEMENT/ ADVANTAGE - HMO) Radkayla Solanodq [id number] Radkayla Solanodq 12/16/2024 1 [employer] - [place] - DUAL ELIGIBLE - [place] (MEDICARE REPLACEMENT/ ADVANTAGE - HMO) Radkayla Solanodq [id number] Radkayla Solanodq 12/16/2024 1 [employer] - DUAL ELIGIBLE - PACE - [facility] (MEDICARE REPLACEMENT/ ADVANTAGE - HMO) Radkayla Solanodq [id number] Radkayla Solanodq 10/18/2024 1 [facility] [place] - [place] (MED[place] RE[place]/ ADVANTAGE - HMO) Nestor Solanodq [id number] Radkayla Solanodq Notes Date Note Type Note Provider Name [...] and well perfused. 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 [employer] speech recognition women nurse software was used to create portions of this document. An attempt at proofreading has been made to minimize errors. Please call for corrections. Chelsie Braxton MD [address] [place] [address], [place], [address], [facility] 08/29/2024 15:17:05 10/18/2024 text/html I am seeing the patient today under the supervision of Dr. Bobby who was available but who did not see the patient. Surgeon: Dr. BraxtonProcedure: Right shoulder arthroscopic 1+1 double row supraspinatus repair, arthroscopic long head biceps tenodesis, SAD DCE, lysis of adhesionsDate of procedure:08/16/2024 Interval History:Patient returns today in follow-up now 2 months out from surgery above. [employer] Paralegal service used for appointment today. Patient has weaned from the sling. She has started physical therapy as instructed at [facility] at around 2-3 weeks post-operatively she reports. [...] and well perfused. Imaging: Deferred. 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 She has started physical therapy at [facility] around 2-3 weeks after surgery. Therapy will [...] phase of therapy sooner if any concerns. [employer] [facility] speech recognition women nurse software was used to create portions of this document. An attempt at proofreading has been made to minimize errors. Please call for corrections. Francy Orta PA-C [address], [place], [address], [place] [facility] [facility] 10/18/2024 14:28:41 12/16/2024 text/html Surgery: Right arthroscopic [...] and well perfused. Imaging: Deferred Impression: 69-year-old xxkio-grmc-dlbbgwct Yoruba speaking woman, now approximately 4 months out [...] another 2 months for likely last recheck. [facility] speech recognition women nurse software was used to create portions of this document. An attempt at proofreading has been made to minimize errors. Please call for corrections. Chelsie Braxton MD [address] [place], [place] [address] [address], [place], [address], [facility] [facility] 12/16/2024 14:58:56 12/27/2024 text/html ROS as noted in the HPI I am seeing the patient today under the supervision of Dr. Bobby who was available but who did not see the patient. HPI:Patient is a 69-year-old Yoruba speaking female who presents to the office [...] with Gabapentin for pain as well as qonllzp-fhd-jfzljlg medications deemed necessary for pain relief. Follow-up as needed. All patient questions and concerns answered today. Felipe Miguel PA-C [address] [place] [address] [address], [place], [address], [facility] - [facility] 12/27/2024 13:23:59 02/27/2025 text/html Surgery: Right arthroscopic [...] and well perfused. Imaging: Deferred Impression: 69-year-old dioar-dbuu-zeoxymei Yoruba speaking woman, now approximately 6 months out [...] occasional aches and pains, she can take ihre-igb-xhsnqbb medication such as Tylenol or anti-inflammatories as needed; risks and benefits of medication discussed. Should call with more persistent pain. We will leave follow up open ended at this point. However should symptoms worsen or fail to improve to the patient's satisfaction, she is encouraged to give the office a call to be seen back for further evaluation and management. [facility] [employer] [facility] speech recognition women nurse software was used to create portions of this document. An attempt at proofreading has been made to minimize errors. Please call for corrections. Chelsie Braxton MD [address] [facility] [address], [place], [address], [facility] [place] [facility] 02/27/2025 13:19:58 OBGyn Episode No OBEpisode recorded.
--- OUTSIDE RECORDS SUMMARY | 2025-07-19 13:19 | XMS_ITS | Clinical Summary ---
Author Organization [employer] Address [address] [place] [address] [address] [place] [address] Care Team Providers Care Associate Director Financial Aid Name Role Phone Unavailable Primary Care Provider [...] - [facility] JOSE L RAMON [address]
--- OUTSIDE RECORDS SUMMARY | 2025-07-19 13:19 | XMS_ITS | Encounter Summary ---
Author Organization [employer] Address [address] [facility] [address] [place] [address] Care Team Providers Care Learning And Development Manager Name Role Phone Unavailable Primary Care Provider Unavailabl e Encounter Details Date Type Department Care Team (Late st Contact Info) Description 08/20/2023 Abstract [facility] [address] [place] [address] Norberto Jain DDS [address] [place] [address] Social History Tobacco Use Types Packs/Day Years [...]
== END 2025-07-19 11:19 | disposition home or self-care (01) ==
LOC: HO.PMC 10:41
PROVIDERS: PCP Nurse Practitioner Adult Health; Visit Provider Anesthesiology
DX: M17.0 Bilateral primary osteoarthritis of knee (principal); M25.561 Pain in right knee; M25.562 Pain in left knee; G89.29 Other chronic pain
CPT/HCPCS: 20610; 99213

== ENCOUNTER → 2025-07-19 10:41 | Outpatient (BNVA) | payer OTHER, SELFPAY | PROVIDERS: PCP Nurse Practitioner Adult Health; Visit Provider Anesthesiology | DX: M25.561 Pain in right knee (principal); M25.562 Pain in left knee; G89.29 Other chronic pain; M17.0 Bilateral primary osteoarthritis of knee | CPT/HCPCS: 20610; J2795; J3301 ==

== ENCOUNTER 2025-09-19 13:54 | Outpatient (AMB) | payer OTHER, SELFPAY ==
[2025-09-19 14:09] VITALS: BP 106/70; PULSE 90; O2SAT 97; BMI 26.2
--- NOTE | 2025-09-19 14:09 | MHC.OFFVIS ---
Vital Signs 09/19/25 14:09 Height 5 ft 7 in Weight 167 lb 8 oz BMI 26.2 BP 106/70 Blood Pressure Location Rt brachial Position Sitting Pulse 90 Pulse Source Pulse Oximeter Pulse Oximetry (%) 97 Oxygen Delivery Method Room Air Intake Visit Reasons: 3 mo follow up Intake Note: Patient presents follow up Paresthesia/Sleep medication. HST in chart(AHI-10, DIDIER-87%). Manager Implementation Required: Yes Manager Implementation Language: Bengali Manager Implementation Services: Manager Implementation Present Manager Implementation Name: Guero [id number] Information Interpreted: non-clinical & clinical Accompanied by: Self / Same As Patient Allergies Gadolinium-Containing Contrast Medi Adverse Reaction (Severe, Verified 09/19/25 14:13) sored throat and sneezing arugla Allergy (Severe, Uncoded 07/20/24 15:07) rash HPI Comments Details: 70 year old Bengali speaking female presents for a follow up of HST and restless leg syndrome. Bengali Manager Implementation on IPAD helps with history taking. HST is c/w mild kenn AHI is 10/hr and oxygen nadirs to 87% and snoring for 45% of total sleep time, pt will think about the use of APAP therapy and or oral appliance use with sleep dentistry and follow up accordingly. She continues to have bilateral arthritic knee pain due to degenerative cartilage wear and tear. Orthopedic surgical consult submitted and patient is now being followed by pain management for cortisone shots and this has significantly improved her knee stiffness. She is seeing Dr. Gary in [place] and had an MRI of the l. leg which also indicated inflammation and stiffness of the left knee with nerve impingement. She wakes up multiple times a night due to the pain, with paresthesias and takes melatonin 5mg to 12 mg po daily to help her fall asleep and still has multiple arousals. She also has mirtazapine for low mood and sleep disturbances. She continues to have bilateral shoulder pain and takes 5mg of flexiril and is able to sleep on her sides. She can get anxious. Her memory is stable though she constantly worries. RLS symptoms +numbness, tingling, burning pain, radiating up the feet and keep her up at night. She says it feels like pins and needles and can not sleep at night when the pain increases, she is not able to tolerate it well and notices lyrica has helped. She has been applying pressure and using heating blankets along with all her usual medications. [facility] Surgical History History of shoulder surgery H/O endoscopy Family History Mother Diabetes Colon cancer Social History Alcohol intake: never Patient Tobacco Use Status: Never used Tobacco Physical Exam Vital Signs: Last Vital Signs Pulse 90 09/19/25 14:09 BP 106/70 09/19/25 14:09 Pulse Ox 97 09/19/25 14:09 Oxygen Delivery Method Room Air 09/19/25 14:09 BMI result Body Mass Index 26.2 Const General: cooperative, no acute distress and other (holding her right shoulder and rubs her legs) Nutritional Appearance: average body habitus Orientation/consciousness: patient oriented x3 Limitations: language barrier (Manager Implementation on IPAD - ) HEENT Head: Yes normal to inspection Face and sinus: Yes face symmetric Neck Neck: Yes full ROM Resp Effort & Inspection: normal respiratory effort and able to speak in complete sentences Neuro Other: pain is elicited on motor exam, refuses upper extremity reflexes today. General: patient oriented x3 and moves all extremities Cranial nerves: Yes CN's II-XII intact bilaterally, Yes Ability to bilaterally rotate head present and Yes Ability to bilaterally elevate shoulders present Gait exam (Neuro): Staggering gait present Motor exam (neuro): Abnormal motor strength present and Abnormal muscle tone present Deep tendon reflexes (DTR's): Right patellar reflex intensity grade: 2+, Left patellar reflex intensity grade: 2+, Right ankle reflex intensity grade: 2+ and Left ankle reflex intensity grade: 2+ Coordination: jsfima-zl-jkwp test normal and rapid alternating movements of the distal lower extremity normal (slow) Psych Appearance: grossly normal Attitude: cooperative Results Reviewed Results Reviewed: HST c/w mild kenn, AHI is 10/hr and oxygen nadirs to 87% with snoring for 45% of TST. Pt will decide on Apap use or sleep dentistry for oral appliance. Assessment & Plan Assessment & Plan (1) Excessive daytime sleepiness: Code(s): G47.19 - Other hypersomnia Category: Medical (2) Sleep difficulties: Code(s): G47.9 - Sleep disorder, unspecified Category: Medical (3) Paresthesia of bilateral legs: Code(s): R20.2 - Paresthesia of skin Category: Medical (4) History of burning pain in lower extremity: Code(s): Z87.39 - Personal history of other diseases of the musculoskeletal system and connective tissue Category: Medical (5) Bilateral knee pain: Code(s): M25.561 - Pain in right knee; M25.562 - Pain in left knee Category: Medical Qualifiers: Chronicity: chronic Qualified Code(s): M25.561 - Pain in right knee; M25.562 - Pain in left knee; G89.29 - Other chronic pain (6) Pain in both lower legs: Comment: ? RLS Code(s): M79.661 - Pain in right lower leg; M79.662 - Pain in left lower leg Category: Medical Plan Sleep difficulties HST c/w mild kenn AHI is 10/hr, and pt will decide if she wants to start APAP therapy or if she wants to be referred to sleep dentistry for an oral appliance device or mouth guard due to snoring 45% of total sleep time. Continue Melatonin 5-12mg po qpm for sleep difficulties. NIDRA Tonic Motor Activiation Device for severe RLS symptoms of paresthesias, may continue Lyrica 50mg po BID for RLS. Continue cortisone injections with pain management for Bilateral knee pain as needed q 3 months. Hold Gabapentin 100-200mg as it is not effective. Anxiety may Continue Duloxetine for mood irritability/ low mood. Labs reviewed with pt today, continue vitamin D daily at bedtime. 3 months f/u Medications: New mirtazapine 15 mg PO BEDTIME 90 tabs 0RF G47.19 - Other hypersomnia, G47.9 - Sleep disorder, unspecified [Tonic Motor Acitivator Device] As directed 1 ea 0RF RLS M79.661 - Pain in right lower leg, M79.662 - Pain in left lower leg, R20.2 - Paresthesia of skin Changed From gabapentin 100 mg PO BEDTIME To gabapentin 100 mg PO BEDTIME 90 caps 0RF 3 months MDD 100mg Refilled magnesium oxide 400 mg PO DAILY 30 days 30 tabs 6RF vitamin B complex take one tablet daily at bedtime 1 tab PO DAILY 90 tabs 3RF neuropathy 90 days M79.661 - Pain in right lower leg, M79.662 - Pain in left lower leg pregabalin take one 50mg po capsule daily in the AM and 50mg PO daily in the evening. 50 mg PO BID 60 caps 0RF burning pain 1 month MDD 100mg M79.661 - Pain in right lower leg, M79.662 - Pain in left lower leg cholecalciferol (vitamin D3) take one capsule daily at bedtime 25 mcg PO DAILY 90 caps 2RF low vitamin d 90 days MDD 25mcg R79.89 - Other specified abnormal findings of blood chemistry magnesium oxide 400 mg PO DAILY 30 tabs 6RF 30 days melatonin take one tablet at night daily for sleep difficulties. 12 mg PO BEDTIME 90 tabs 0RF difficulties sleeping 90 days MDD 12mg G47.9 - Sleep disorder, unspecified Patient Instructions: INDICATION The Nidra Tonic Motor Activation? (TOMAC?) System is intended to reduce symptoms of primary moderate-severe Restless Legs Syndrome and to improve sleep quality in adults refractory to medications. Coding Level of Care Code Add On Preventative Visit Only Diagnoses Excessive daytime sleepiness G47.19 Sleep difficulties G47.9 Paresthesia of bilateral legs R20.2 History of burning pain in lower extremity Z87.39 Chronic pain of both knees M25.561; M25.562; G89.29 Chronicity: chronic Pain in both lower legs M79.661; M79.662
--- OUTSIDE RECORDS SUMMARY | 2025-09-19 17:42 | XMS_ITS | Data Portability ---
Author Organization [place] - Demarcus Alarcon [facility], [facility] Address [address] [place] [address] Care Team Providers Care Pilot Manager Name Role Phone [facility] Primary Care Provider Assessment No assessment recorded. Plan of Treatment Reminders Order Date Submit Date Provider Name Organization Details Last Modified By Last Modified Time Details Appointments NEW PROBL EM 2025 02:15P M Charlie Broussard MD Not available Not available Not available Lab None recor ded. Referral physi amalia thera pist refer ral 2024 14:56: 03 025 Chelsie Braxton MD Not available [facility] 01/02/2025 14:29:04 Procedures None recor ded. Surgeries None recor ded. Imaging XR, knee, 4 or more view 2024 10:33: 45 025 Felipe Miguel PA-C [facility] [address],[facility] [address], [place], [address], Felipe Miguel PA-C 12/27/2024 16:52:28 MedicationOrder s napro xen 500 mg table t 2024 14:18: 22 [id number] [address] [facility], [address], Ph [phone] Not Available Not available 02/27/2025 13:05:31 Take 1 tablet twice a day by oral route for 14 days. VaccineOrders None recor ded. Patient TargetsNo targets recorded. Patient InstructionsNo instructions recorded. Reason for Referral Physical Therapist Referral for Adhesive capsulitis of right shoulder SURGERY: Right rotator cuff repair 08/16/24; postop arthrofibrosis 2-3x/week x 6 weeks Evaluate and Treat Goal: - Decrease pain/swelling - Increase range of motion - Increase strength and/or endurance Recommended Modalities: - Heat prior to stretching - Ice at the end of the session - Additional modalities prn, but emphasis should be on manual therapy Precautions: WBAT, no motion restrictions Therapeutic Exercise: - Passive, active-assist, active range of motion as tolerated, focusing on gradual progression over time - Scapular shrugs/retractions - should be major focus! - Continue with rotator cuff strengthening as per previous protocol Emphasize importance of home program, 2x/day Referring Physician: Chelsie Braxton, Orthopedic Surgery, Encounter Date: 12/16/2024 Results Created Date Observation Date Name Description Value Unit Range Abnormal Flag Specimen Type Note LastModifiedBy Organization Detail LastModifiedTime 12/27/2024 12/27/2024 knee 4 view [email or web address]=[email or web address]%1TTYopLsadj7mukc%1Vy8ANp1 owRriU1zMwFLvysDt2BoJMQpMoeJZD5sNxZDuwj40n6622TI8OzS61SEMEiTaVwrFbD Not Available [employer] , [address] , [place] , [address], , 12/27/2024 10:42:26 12/27/2024 12/27/2024 knee 4 view [email or web address]=uaXaKzpXI2xTtcNWo9y%4RJDozGmsoi2gcfa%7Rd6CPf0 ptWmoZ7wGrTSwloZo4AmHDYnToxDYD5kWwCIhwf50w9322PY3LgU05SDGDtXqGolMuL Not Available [employer] , [address] , [place] , [address], , 12/27/2024 10:42:28 Result Notes Documentation Provider Name and Address Organization Details Recorded Time Xr, Knee, 4 Or More View : [email or web address] Encrypted=fnOdHtjKA2zXlrH Uv6g%8CQUbzIcpld9qdlq%2Fg 8RFa2feFoxD9hMtVLqcjKi1Fk ZVJdJcmWXU0wSuBQtoz78x213 9JR6QiQ37NADBxDpAkwAqK Not Available [facility] 12/27/2024 10:42: 26 Xr, Knee, 4 Or More View : [email or web address] Encrypted=oqUeAkaJT1eLkaO Uv6g%2HWEciEfhmt7ffqr%2Fg 9BRm0qyZdlI3qHuBVrljEy3Uh FMUiTszWLE2nPjJRksl64b828 1VA3NfV41IFUPsFgXtfEdB Not Available [facility] 12/27/2024 10:42: 28 Problems Name Problem SNOMED Code Status Onset Date Resolution Date Notes Provider Name and Address Organization Details Recorded Time Injury of tendon of the rotator cuff of shoulder 502659899 Active 2023 Francy Davis PA-C [address], [place], [address] , [facility] 4 11:38:52 Pain of right shoulder joint 7668653983974 9100 Active 2023 Francy Davis PA-C [address], [place], [address] , [facility] 4 13:47:54 Patellofem oral syndrome of bilateral knees 0481871388345 9105 Active 2024 REGINA vaughan [facility] 5 12:13:42 Problem Notes None recorded. Procedures Surgical History Date Name Laterality Status Provider Name and Address Organization Details Recorded Time 12/28/19 25 Knee Kenalog 40 1cc Injection, Bilateral completed Felipe Miguel PA-C [address], [place], [address], [facility] 12/27/2024 13:23:13 12/17/19 25 Sports Shoulder completed Chelsie Braxton MD [address] [facility], [place], [address], [facility] 12/16/2024 14:56:28 08/16/20 24 arthroscopic repair of rotator cuff completed Francy Orta PA-C [address] [facility], [place], [address], [facility] 10/18/2024 14:05:39 02/12/20 24 Sports Shoulder completed Chelsie Braxton MD [address] [facility], [place], [address], [facility] 02/12/2024 12:39:56 Imaging Results Imaging Date Name Status LastModifiedBy Organiza tion Detail LastModifiedTime 12/27/2024 knee 4 view completed Not Available [facility] , [address] , [place] , [address], , 12/27/2024 10:42:26 12/27/2024 knee 4 view completed Not Available [facility] , [address] , [place] , [address], , 12/27/2024 10:42:28 Procedure Notes None recorded. Medical Equipment None Reported. Allergies Allergen ID Allergen Name Allergen Category Reaction Reaction Severity Criticality Documentation Date Start Date Code Code System Note Provider Name and Address Organization Details Recorded Time 100443 Iodinated contrast media (substanc e) medicatio n Not available Not available Not available 01/29/2024 36807 2003 SNOMED DIANA vaughan [facility] 4 10:28:20 Medications Name Authored On Sig Start Date Stop Date Status Note Indication Fill Status Repeat Number Dispense Quantity LastModified by Organization Details LastModified Time Denta Gel 1.1 % 4 05:58:43 USE FOR BRUS ROSA BY WESLEY Acosta ONCE TEJA Y FOR 30 DAYS 04/21 aborted Not Available Not availab le 0 Not Available Francy Davis, JORGE [address], [place], [address], [facility] 04/21/2024 11:34:05 cetir izine 10 mg table t 4 05:52:24 TAKE 1 TABL ET BY MOUT H EVER Y DAY active Not Available Not availab le 0 Not Available Not Available [facility] 07/14/2024 05:52:24 amoxi cilli n 500 mg capsu le 4 05:52:24 TAKE 1 CAPS ULE BY MOUT H THRE E TIME S A DAY 07/23 aborted Not Available Not availab le 0 Not Available DAVID ARTURO [facility] 07/23/2024 09:53:10 docus ate sodiu m 100 mg capsu le 5 05:52:52 TAKE 1 CAPS ULE (100 MG) BY ORAL ROUT E ONCE TEJA Y NEED ED FOR 30 DAYS 02/27 aborted Not Available Not availab le 0 Not Available DIANA ALDRIDGE [facility] 02/27/2025 13:05:23 oxyco done 5 mg table t 5 05:52:52 TAKE 1 TABL ET BY MOUT H EVER Y 4 HOUR S NEED ED 02/27 aborted Not Available Not availab le 0 Not Available DIANA ALDRIDGE [facility] 02/27/2025 13:05:27 napro xen 500 mg table t 5 14:18:22 Take 1 tabl et twic e a day by oral rout e for 14 days . 02/27 aborted Follow-up orthopedic assessment Not availab le 0 Not Available Not Available [facility] 02/27/2025 13:05:31 trama dol 50 mg table t 4 13:48:15 Take 1 tabl et at nigh t as need ed for cookie re pain . 02/27 aborted Pain of right shoulder joint Not availab le 0 Not Available DIANA ALDRIDGE [facility] 02/27/2025 13:05:46 lidoc saundra 5 % topic al patch 4 06:09:13 APPL Y 1 PATC H TOPI CALL Y TEJA Y NEED ED FOR MILD PAIN FREDO VE AFTE R 12 HOUR S 02/27 aborted Not Available Not availab le 0 Not Available DIANA ALDRIDGE [facility] 02/27/2025 13:05:49 aspir in 325 mg table t 5 05:52:52 TAKE 1 TABL ET (325 MG) BY ORAL ROUT E ONCE TEJA Y FOR 14 DAYS 02/27 aborted Not Available Not availab le 0 Not Available DIANA ALDRIDGE [facility] 02/27/2025 13:05:54 aceta minop hen 500 mg table t 05:52:52 TAKE 2 TABL ET (100 0 MG) BY MOUT H 3 TIME S A DAY 02/27 aborted Not Available Not availab le 0 Not Available DIANA ALDRIDGE [facility] 02/27/2025 13:05:57 Ear Wax Remov al Drops 6.5 % 14:17:06 PLAC E 5 DROP S INTO RIGH T EAR 2 TIME S A DAY FOR 7 DAYS active Not Available Not availab le 0 Not Available Not Available galina - [employer] - prod 08/28/2025 14:17:06 predn isone 10 mg table t 14:17:06 PLEA SE SEE ANGEL CHED FOR DETA ILED DIRE CTIO NS active Not Available Not availab le 0 Not Available Not Available galina - [employer] - prod 08/28/2025 14:17:06 celec oxib 200 mg capsu le 14:17:07 TAKE 1 CAPS ULE (200 MG) BY ORAL ROUT E 2 TIME S PER DAY FOR 28 DAYS active Not Available Not availab le 0 Not Available Not Available galina - [employer] - prod 08/28/2025 14:17:07 mecli zine 25 mg table t 14:17:07 TAKE 1 TABL ET (25 MG) BY ORAL ROUT E 3 TIME S PER DAY NEED ED FOR 14 DAYS active Not Available Not availab le 0 Not Available Not Available [facility] - [employer] - prod 08/28/2025 14:17:07 methy lpred nisol one 4 mg table ts in a dose pack 14:17:07 TAKE 6 TABL ETS ON DAY 1 DIRE CTED ON PACK AGE AND DECR EASE BY 1 TAB EACH DAY FOR A TOTA L OF 6 DAYS active Not Available Not availab le 0 Not Available Not Available galina - External [employer] - prod 08/28/2025 14:17:07 ondan setro n 4 mg disin tegra ting table t 02:15:48 PLEA SE SEE ANGEL CHED FOR DETA ILED DIRE CTIO NS active Not Available Not availab le 0 Not Available Not Available galina - [employer] Data [employer] - prod 08/31/2025 02:15:48 Vitals Date Recorded Body height Body mass index (BMI) Body weight Provider Name and Address Organization Details Last Updated DateTime 10/18/2024 165.1 cm 25.6 kg/m2 64139.22 g DAVID MORRIS [facility] 10/18/2024 13:45:16 Date Recorded Body height Body mass index (BMI) Body weight Provider Name and Address Organization Details Last Updated DateTime 12/16/2024 165.1 cm 25.6 kg/m2 04159.22 g DIANA ALDRIDGE [facility] 12/16/2024 14:10:53 Date Recorded Body height Provider Name an d Address Organization Details Last Updated DateTime 12/27/2024 165.1 cm ADE GOEL [facility] 12/27/2024 10:28:02 Date Recorded Body height Body mass index (BMI) Body weight Provider Name and Address Organization Details Last Updated DateTime 02/27/2025 165.1 cm 25.6 kg/m2 97132.22 g DIANA ALDRIDGE [facility] 02/27/2025 13:05:19 Date Recorded Body height Body mass index (BMI) Body weight Body temperature Provider Name and Address Organization Details Last Updated DateTime 08/29/2024 165.1 cm 25.6 kg/m2 12510.22 g 97.1 [degF] DIANA ALDRIDGE [facility] 08/29/2024 14:52:52 Social History Question Answer Notes LastModified by Organizat ion Details LastModified Time Tobacco Smoking Status Never Smoker DUSTIN LOTT [facility] 06/14/2024 13:07:55 What Is Your Level Of Alcohol Consumption? None [facility] 06/14/2024 13:07:55 Which of your hands is dominant? Right Francy Davis PA-C [address] [facility] [address], [place], [address], [facility] 04/21/2024 11:34:18 Social History Observation Description Date Observed Sex Unknown 09/01/2025 Legal Sex Female Status Not (finding) 09/19/20 25 No social history survey screeners recorded No social history SDOH screeners recorded Functional Status Question Answer Note LastModified by Organizat ion Details LastModified Time Do you or have you ever used any other forms of tobacco or nicotine? No DUSTIN PILLAIJASON [facility] 06/14/2024 13:07:55 What is your level of alcohol consumption? None [facility] 06/14/2024 13:07:55 Do you use any illicit or recreational drugs? [facility] 06/14/2024 13:07:55 No Functional Screening assessment recorded No Functional SDOH screeners recorded Mental Status None recorded. No Mental Screening assessment recorded No Mental SDOH screeners recorded Family History Nothing Reported. Medical History Condition Response Coronary Artery Disease N Anxiety/Depression N Emphysema N COPD N Pacemaker N Vascular Disease N Heart Trouble N Autoimmune disease N Orthotics N Arthritis N Blood Clot N Acid Reflux (GERD) Y Cancer N Stroke N Circulation Problems N Rheumatoid Arthritis N Arrhythmia N Headaches N Fibromyalgia N Allergies/Hayfever N Breathing or lung disorders N Nerve Disorders N Thyroid Problems N Kidney/Bladder Problems N Anemia N Heart Attack (ME) N Cholesterol N Diabetes N Bleeding Disorder N Seizures/Epilepsy N AIDS/HIV N Congestive Heart Failure (CHF) N Asthma N Peripheral Vascular Disease N Sleep Apnea N Hepatitis N Heart Disease N Pulmonary Embolism N Hypertension N Osteoporosis N Gynecological HistoryNo gynecological history recorded. Obstetrics History GPAL:G 0 P 0 0 0 0 Past Encounters Encounter ID Performer Location Encounter Start Date Encounter Closed Date Diagnosis/Indication Diagnosis SNOMED-CT Code Diagnosis ICD10 Code Diagnosis IMO Codes Diagnosis Note [id number] MD Nayan Foreman 2nd floor [address] [place], [place] [address] 02/12/2024 11:19:42 02/24/2024 15:52:22 Impingement syndrome of right shoulder region 0804940198 57549 M75.41 [id number] JORGE Moody 3rd floor [address] [place], [place] [address] 06/14/2024 12:54:11 06/27/2024 11:27:00 Injury of tendon of the rotator cuff of shoulder 788904748 S46.001D [id number] JORGE Moody [address] [place] [address] 07/14/2024 12:53:40 08/03/2024 07:39:42 Injury of tendon of the rotator cuff of shoulder 783125543 S46.001D [id number] MD Nayan Foreman [address] [place] [address] 07/23/2024 08:09:56 08/17/2024 09:12:12 Pain of right shoulder joint 9742275965 4882902 M25.511 307931 Full thick ness rotator cuff tear 083188118 M75.326 [id number] MD Nayan Foreman [address] [place] [address] 08/29/2024 14:39:14 09/27/2024 07:31:54 Follow-up orthopedic assessment 885083779 Z47.89 [id number] Francy Orta PA-C [facility] [address] [place], [place] [address] 10/18/2024 13:37:21 11/04/2024 08:33:27 Follow-up orthopedic assessment 014619745 Z47.89 [id number] MD ODETTE Foreman 2[address] [place] [address] 12/16/2024 14:01:25 01/02/2025 14:29:03 Adhesive capsulitis of right shoulder 6443347424 80085 M75.01 [id number] JORGE Aguirre [address] [place] [address] 12/27/2024 10:23:41 01/11/2025 08:02:25 Pain of left knee joint 8015783923 31600 M25.562 492984 Patellofem oral syndrome of bilateral knees 0909948278 2901324 M22.2X1 M22.2X2 [id number] MD ODETTE Foreman 2nd floor [address] [place] [address] 02/27/2025 12:56:27 03/14/2025 13:52:59 Follow-up orthopedic assessment 027150560 Z47.89 [id number] Health Concerns Section Related Observation LastModified by Organization Detai ls LastModified Time None Recorded Concern Status LastModified by Organization Details LastModified Time None Recorded SDOH Concern Status LastModified by Organization Detai ls LastModified Time None Recorded Advance Directives Directive None Recorded Payers Insurance Date Sequence Insurance Name Policy Number Policy Jean Covered Member ID Jean Member ID Guarantor Name 12/16/2024 1 [employer] - DUAL ELIGIBLE - [place] - [facility] (MEDICARE REPLACEMENT/ ADVANTAGE - HMO) Radhiya Msadq [id number] Radhiya Msadq 12/16/2024 1 [employer] - [place] - DUAL ELIGIBLE - [place] (MEDICARE REPLACEMENT/ ADVANTAGE - HMO) Radhiya Msadq [id number] Radhiya Msadq 12/16/2024 1 [employer] - DUAL ELIGIBLE - [place] - [facility] (MEDICARE REPLACEMENT/ ADVANTAGE - HMO) Radhiya Msadq [id number] Radctya Msadq 10/18/2024 1 [facility] [place] (MEDICARE REPLAC[place]/ ADVANTAGE - HMO) Radkayla Msadq [id number] Kiranhiarlene Msadq Notes Date Note Type Note Provider [...] and well perfused. 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 [employer] [facility] speech recognition lumber grader software was used to create portions of this document. An attempt at proofreading has been made to minimize errors. Please call for corrections. Chelsie Braxton MD [address] [place] [address] [address] [facility], [place], [address], [facility] 08/29/2024 15:17:05 10/18/2024 text/html I am seeing the patient today under the supervision of Dr. Bobby who was available but who did not see the patient. Surgeon: Dr. BraxtonProcedure: Right shoulder arthroscopic 1+1 double row supraspinatus repair, arthroscopic long head biceps tenodesis, SAD DCE, lysis of adhesionsDate of procedure:08/16/2024 Interval History:Patient returns today in follow-up now 2 months out from surgery above. Public Speaking Teacher service used for appointment today. Patient has weaned from the sling. She has started physical therapy as instructed at [facility] at around 2-3 weeks post-operatively she [...] and well perfused. Imaging: Deferred. 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 She has started physical therapy at [facility] around 2-3 weeks after surgery. Therapy [...] phase of therapy sooner if any concerns. [facility] speech recognition lumber grader software was used to create portions of this document. An attempt at proofreading has been made to minimize errors. Please call for corrections. Francy Orta PA-C [address], [place], [address], [facility] 10/18/2024 14:28:41 12/16/2024 text/html [...] and well perfused. Imaging: Deferred Impression: 69-year-old dvwdu-bqxy-vwhrtakj Belarusian speaking woman, now approximately 4 months out [...] another 2 months for likely last recheck. [facility] speech recognition lumber grader software was used to create portions of this document. An attempt at proofreading has been made to minimize errors. Please call for corrections. Chelsie Braxton MD [address] [place] [address] [address], [place], [address], [facility] 12/16/2024 14:58:56 12/27/2024 text/html ROS as noted in the HPI I am seeing the patient today under the supervision of Dr. Bobby who was available but who did not see the patient. HPI:Patient is a 69-year-old Belarusian speaking female who presents to the office [...] with Gabapentin for pain as well as hpvheye-zre-cqpgxnl medications deemed necessary for pain relief. Follow-up as needed. All patient questions and concerns answered today. Felipe Miguel PA-C [address] [place] [address] [address], [place], [address], [facility] 12/27/2024 13:23:59 02/27/2025 text/html Surgery: Right [...] and well perfused. Imaging: Deferred Impression: 69-year-old kcyvc-culd-dgqimtws Belarusian speaking woman, now approximately 6 months out [...] occasional aches and pains, she can take dvwd-bzz-gwjjlfj medication such as Tylenol or anti-inflammatories as needed; risks and benefits of medication discussed. Should call with more persistent pain. We will leave follow up open ended at this point. However should symptoms worsen or fail to improve to the patient's satisfaction, she is encouraged to give the office a call to be seen back for further evaluation and management. [employer] speech recognition lumber grader software was used to create portions of this document. An attempt at proofreading has been made to minimize errors. Please call for corrections. Chelsie Braxton MD [address] [place], [place] [address] [address], [place], [address], [facility] 02/27/2025 13:19:58 Care Team Name Role Member ID Specialty Address Phone [facility] Primary Care Provider [id number] [address] [place], [place] OBGyn Episode No OBEpisode recorded.
--- OUTSIDE RECORDS SUMMARY | 2025-09-19 17:42 | XMS_ITS | Clinical Summary ---
Author Organization [employer] Address [address] [place] [address] 7 [place] [address] Care Team Providers Care Foxing Closer Name Role Phone Unavailable Primary Care Provider [...] [employer] 12/23/2024 12/23/2023 COVID-19 Vaccine (1 - 2024-2 6 season) 2025 Influenza Vaccine (#1) 2025 Dental [...] - [facility] [place] RAM[place] [phone]
--- OUTSIDE RECORDS SUMMARY | 2025-09-19 17:42 | XMS_ITS | Encounter Summary ---
Author Organization [employer] Address [address] [facility] [address] [place] [address] Care Team Providers Care Paving Bed Maker Name Role Phone Unavailable Primary Care Provider Unavailabl e Encounter Details Date Type Department Care Team (Late st Contact Info) Description 08/20/2023 Abstract [facility] [address] [place] [address] Norberto Jain DDS [address] [place] [address] Social History Tobacco Use Types Packs/Day Years [...]
== END 2025-09-19 14:58 | disposition home or self-care (01) ==
LOC: HO.HSMS 13:54
PROVIDERS: Visit Provider Physician Assistant Medical
DX: G47.19 Other hypersomnia (principal); G47.9 Sleep disorder, unspecified; R20.2 Paresthesia of skin; Z87.39 Personal history of other diseases of the musculoskeletal system and connective tissue; M25.561 Pain in right knee; M25.562 Pain in left knee; G89.29 Other chronic pain; M79.661 Pain in right lower leg; M79.662 Pain in left lower leg
CPT/HCPCS: 99213; G2211